=== PATIENT | male | born 1965 | race Caucasian/White ===

== ENCOUNTER 2017-05-08 12:36 | Inpatient (IN) | payer OTHER ==
[~2017-05-08] VITALS: Ht 162.6 cm; Wt 105.7 kg
[~2017-05-08 12:36] MED LIST: ARTIOIN2; ASPI-390 PO; ATOR10TA88 PO; BISO10TA PO; BUSP30TA2 PO; CARB0.5D28; CMD6 PO; DONE23TA PO; EFF75 PO; GLC5 PO; LEVO150T9 PO; LISI-461 PO; LYR50 PO; NMN10 PO; OXCA150T2 PO; OXCA300T PO; OXYC-106 PO; PRLSR20 PO; SITA1TAB21 PO; SITA50TA5 PO; TAMS0.4C38 PO; WARF5TAB90 PO
[2017-05-08] MEDS ORDERED: SODIUM CHLORIDE 0.9% 1000ML 2,000 ML IV ONE (13:00)
[2017-05-08] MEDS: ONDANSETRON INJ 2 MG/ML 2 ML VIAL IV PRN ×3 (13:29→19:57)
[2017-05-08] MEDS: HYDROmorphone INJ 1 MG/ML SYR IV PRN ×3 (13:30→20:00)
[2017-05-08 13:33] LABS: BASO % 0.3 %; BASO ABS # 0.03 K/uL (0-0.2); COMPLETE YES; EOS % 0.6 %; HEMATOCRIT 42.3 % (42-52); IG% 0.3 %; LYMPH % 11.9 %; LYMPH ABS # 1.39 K/uL (1.2-3.4); MEAN CELL VOLUME 84.9 fL (80-100); MEAN CORPUSCULAR HEMOGLOBIN 28.9 pg (25-34); MEAN PLATELET VOLUME 10.5 fL (7.4-10.4); MONO % 6.4 %; NEUT % 80.5 %; PLATELET COUNT 213 K/uL (130-400); RED BLOOD COUNT 4.98 M/uL (4.7-6.1); WHITE BLOOD COUNT 11.68 K/uL (4.8-10.8)
[2017-05-08 13:47] LABS: URINE APPEARANCE TURBID (CLEAR); URINE COLOR DK YELLOW; URINE EPITHELIAL CELL AUTO >30 /lpf (0-5); URINE NITRITE NEG (NEG); URINE SPECIFIC GRAVITY 1.033 (1.000-1.030); UROBILINOGEN NEG (NEG); ZZURINE CULT IF INDIC CATH YES
[2017-05-08 13:50] LABS: BUN/CREATININE RATIO 12.6 (10-20); CALCIUM 9.2 mg/dl (8.5-10.1); CREATININE 1.4 mg/dl (0.60-1.40); POTASSIUM 4.3 mmol/L (3.5-5.1)
[2017-05-08 13:52] LABS: INR 1.7 (0.9-1.1); PARTIAL THROMBOPLASTIN RATIO 1.1; PROTHROMBIN TIME (PATIENT) 18.4 SECONDS (9.0-12.0)
[2017-05-08 13:53] LABS: ALB/GLOB RATIO 1.3 (0.9-2)
[2017-05-08 14:00] LABS: MANUAL MICROSCOPIC REQUIRED? NO; REVIEW REQ? YES; URINE BILIRUBIN NEG (NEG)
[2017-05-08 14:18] LABS: URINE PATH CASTS 0-3 GRANULAR CASTS /lpf (0)
--- NOTE | 2017-05-08 14:43 | DIAGNOSTIC IMAGING REPORT ---
(PANCREAS) ABDOMEN LTD CLINICAL HISTORY: hx of pancreatitis cyst? Mesh in abd pancreatitis TECHNIQUE: Ultrasound COMPARISON STUDY: None FINDINGS: Patient is status post cholecystectomy. Common bile that 5 mm. Liver is uniform throughout. Pancreas is not seen due to overlying bowel content. Right kidney is negative for hydronephrosis. IMPRESSION: 1. Nonvisualization of the pancreas due to overlying bowel content. 2. Otherwise negative study post cholecystectomy The above report was generated using voice recognition software. It may contain grammatical, syntax or spelling errors. Electronically signed by: Evan Sood M.D. 05/08/2017 2:41 PM Dictated Date/Time: 05/08/2017 2:40 PM
[2017-05-08] MEDS ORDERED: GLIP2.5T11 PO (14:57)
[2017-05-08] MEDS ORDERED: VENL150C56 PO (14:57)
[2017-05-08] MEDS ORDERED: ONDA4TAB46 PO (14:57)
[2017-05-08] MEDS ORDERED: BUSP-8 PO (14:57)
[2017-05-08] MEDS ORDERED: BISO5TAB3 PO (14:57)
[2017-05-08] MEDS ORDERED: CMD6 PO (14:57)
[2017-05-08] MEDS ORDERED: DICY10CA12 PO (14:57)
[2017-05-08] MEDS ORDERED: COLE1TAB PO (14:57)
[2017-05-08] MEDS ORDERED: DONE10TA12 PO (14:57)
[2017-05-08] MEDS ORDERED: ATOR-26 PO (14:57)
[2017-05-08] MEDS ORDERED: SODIUM CHLORIDE 0.9% 1000ML 1,000 ML IV SCH (16:00)
[2017-05-08] MEDS ORDERED: GLUCAGON FOR INJ 1 MG VIAL SQ PRN (16:30)
[2017-05-08] MEDS ORDERED: GLUCOSE 40% GEL 15 GM TUBE PO PRN (16:30)
[2017-05-08] MEDS ORDERED: DEXTROSE 50% 50 ML SYR IV PRN (16:30)
[2017-05-08] MEDS ORDERED: LACTATED RINGER'S 1000ML 1,000 ML IV SCH (16:30)
[2017-05-08] MEDS ORDERED: GLUCOSE 10 TABS/TUBE PO PRN (16:30)
[2017-05-08] MEDS ORDERED: CMD5 PO (16:43)
[2017-05-08] MEDS ORDERED: ASPI-390 PO (16:43)
[2017-05-08] MEDS ORDERED: CARB1DRO OPB (16:43)
[2017-05-08] MEDS ORDERED: SITA50TA5 PO (16:43)
[2017-05-08] MEDS ORDERED: WARFARIN SOD 6 MG TAB PO SCH (16:45)
[2017-05-08] MEDS ORDERED: ARTIFICIAL TEARS OP SOLN OPB PRN ×2 (16:45)
[2017-05-08 16:53] VITALS: BP 120/75; PULSE 60; TEMP 36.7; BMI 39.1
[2017-05-08 17:31] VITALS: O2SAT 95
[2017-05-08] MEDS: WARFARIN PO SCH ×2 (17:53)
--- NOTE | 2017-05-08 18:24 | History and Physical ---
History & Physical Date of Service May 08, 2017. History & Physical This is a 52 year old male with a PMH of Atrial fibrillation on Coumadin, sinus node dysfunction s/p pacemaker in situ, severe GERD s/p fundoplication, hernia s /p repair with mesh, uncontrolled DM2, recurrent pancreatitis, HTN, HLD, hypothyroidism - presents with worsening abdominal pain, nausea, diarrhea - was to have an EUS as an outpatient in the next few weeks, but symptoms got bad so he presented to the ER. States he's had pancreatitis recurrently in the past and has been to [facility]; has also followed with GI in [place]. Currently c/o pain. No fevers/chills, no chest pain/shortness of breath. VITALS: Last Vital Signs Documentation Date Time Temp Pulse Resp B/P (MAP) Pulse Ox O2 Delivery O2 Flow Rate FiO2 05/08/17 17:31 95 Room Air 05/08/17 16:53 36.7 60 20 120/75 GEN: mild distress secondary to pain HEENT: NC/AT CVS: +S1, S2, RRR LUNGS: CTA b/l, no wheezing ABD: tender, worse at epigastric region EXT: no edema Recurrent Acute Pancreatitis lipase ~ 1400 will make NPO for now lactated ringers Dilaudid PRN for pain (allergy to morphine) GI consultation for possible EUS? no MRCP due to pacemaker DM2 uncontrolled check Ha1c should be off of Januvia due to pancreatitis issues with this medication if Ha1c > 9% - should be discharged on insulin for now, hold oral agents and start a sliding scale diabetic education consulted A. Fib hold Coumadin for possible EGD in AM currently in NSR HTN hold lisinopril due to low BP b-ida with parameters DVT ppx Coumadin for now FULL CODE
--- NOTE | 2017-05-08 19:05 | EMERGENCY ROOM VISIT NOTE ---
History Report prepared by Kenia: [facility] Under the Supervision of: Dr. Andrade Hernandez M.D. First contact with patient: 12:48 Chief Complaint: ABDOMINAL PAIN Stated Complaint: PANCREATITIS History of Present Illness The patient is a 52 year old male who presents to the Emergency Room with complaints of severe epigastric abdominal pain starting a few days ago. He has worsening pain with deep breathing and dry heaving. He reports nausea, diaphoresis, tingling in bilateral hands, and tingling in lips at the initial onset of his symptoms. He denies hyperventilating, lower extremity swelling, or any other complaints. He started having diarrhea this morning but has a history of IBS. He received Zofran upon arrival to the Emergency Room with some relief. The patient has a history of pancreatitis and reports similar symptoms today. He was diagnosed with pancreatitis on March 20. He had 3 episodes of pancreatitis with his most recent episode and related hospitalization occurring 3 weeks ago. The patient is scheduled to have an endoscopy this month. He also has a history of fundoplication, cholecystectomy, and hernia repair. Source of History: patient Onset: a few days ago Position: abdomen (epigastric) Symptom Intensity: severe Modifying Factors (Worsening): breathing (deep), other (dry heaving) Associated Symptoms: + diaphoresis, + nausea, + diarrhea Review of Systems All systems have been listed, reviewed, and are negative other than those previously mentioned. Please see Additional Medical History Sheet. Past Medical & Surgical Medical Problems: (1) Acute pancreatitis (2) Carpal tunnel syndrome (3) Diabetes (4) Hypertension (5) IBS (irritable bowel syndrome) (6) Migraine (7) Pancreatitis (8) Tarsal tunnel syndrome Surgical Problems: (1) H/O hernia repair (2) History of cholecystectomy (3) History of fundoplication Family History Cancer Diabetes mellitus Gallbladder disease Heart disease Hypertension Kidney disease Kidney stones Lung disease Social History Smoking Status: Never Smoker Marital Status: Occupation Status: employed Current/Historical Medications Scheduled Atorvastatin (Lipitor), 80 MG PO QPM Bisoprolol Fumarate (Zebeta), 20 MG PO DAILY Buspirone Hcl (Buspirone Hcl), 10 MG PO BID Donepezil Hydrochloride (Aricept), 10 MG PO HS Glipizide (Glipizide Er), 2.5 MG PO DAILY Levothyroxine Sodium (Levothyroxine Sodium), 1 TAB PO QAM Lisinopril (Lisinopril), 1 TAB PO DAILY Memantine (Namenda), 10 MG PO BID Oxcarbazepine (Trileptal), 450 MG PO BID Pregabalin (Lyrica), 150 MG PO TID Sitagliptin-Metformin Hcl (Janumet Xr), 1 TAB PO QPM Sitagliptin-Metformin Hcl (Janumet), 1 TAB PO QAM Tamsulosin Hcl (Flomax), 0.4 MG PO DAILY Venlafaxine Hcl (Effexor Extended Rel), 150 MG PO DAILY Warfarin Sod (Coumadin), 7 MG PO UD Warfarin Sod (Coumadin), 10 MG PO UD Scheduled PRN Azjcxih-Quwhqfnlhhvtb-Mfeyynyt (Excedrin Migraine), 2 TABS PO Q6 PRN for Migraine Carboxymethylcellulose Sodium (Eq Restore Tears), 1 DROP OPB QID PRN for dry eyes Ondansetron Hcl (Zofran), 4 MG PO Q8 PRN for Nausea Oxycodone/Acetaminophen 10MG/325MG (Percocet 10MG/325MG), 1 TAB PO Q6 PRN for Pain Allergies Coded Allergies: Atenolol (Unverified Allergy, Unknown, water retention, 05/01/17) Diltiazem (Unverified Allergy, Unknown, migraine, 05/01/17) Indomethacin (Unverified Allergy, Unknown, migraine, 05/01/17) Morphine (Unverified Allergy, Unknown, migraine, 05/01/17) Sulfamethoxazole w/Trimethoprim (Unverified Allergy, Unknown, hives, cramping, 05/01/17) Physical Exam Vital Signs Date Time Temp Pulse Resp B/P (MAP) Pulse Ox O2 Delivery O2 Flow Rate FiO2 05/08/17 15:24 112/58 05/08/17 14:06 60 11 05/08/17 13:53 63 05/08/17 13:22 97 Room Air 05/08/17 12:42 36.7 64 18 94/67 96 Room Air Physical Exam GENERAL: Patient awake, alert, oriented x 3. Patient follows commands. Patient does not appear toxic. Patient is adequately hydrated and well- nourished. SKIN: No erythema, pallor, cyanosis or rash. Multiple tattoos. HEENT: Normal head, pupils equal, reactive to light and accommodation. Oral cavity and posterior pharynx appear normal. Mucous membranes are dry. Neck: Without adenopathy, no neck vein distention. CHEST: Pacemaker left upper chest. LUNGS: Clear to auscultation. No wheezes, no rales, no rhonchi. HEART: No murmurs. No gallops. No rubs ABDOMEN: Epigastric tenderness. No masses palpated. Patient has some guarding but no rigidity. EXTREMITIES: No signs of trauma. No pedal or pretibial edema. No calf or thigh tenderness. NEUROLOGIC: Cranial nerves II-XII within normal limits. No gross motor sensory function deficits. Medical Decision & Procedures ER Provider Diagnostic Interpretation: US results as stated below per my review and radiologist interpretation: (PANCREAS) ABDOMEN LTD CLINICAL HISTORY: hx of pancreatitis cyst? Mesh in abd pancreatitis TECHNIQUE: Ultrasound COMPARISON STUDY: None FINDINGS: Patient is status post cholecystectomy. Common bile that 5 mm. Liver is uniform throughout. Pancreas is not seen due to overlying bowel content. Right kidney is negative for hydronephrosis. IMPRESSION: 1. Nonvisualization of the pancreas due to overlying bowel content. 2. Otherwise negative study post cholecystectomy The above report was generated using voice recognition software. It may contain grammatical, syntax or spelling errors. Electronically signed by: Evan Sood M.D. 05/08/2017 2:41 PM Dictated Date/Time: 05/08/2017 2:40 PM Laboratory Results 05/08/17 13:10 Red Blood Count 4.98, Mean Corpuscular Volume 84.9, Mean Corpuscular Hemoglobin 28.9, Mean Corpuscular Hemoglobin Concent 34.0, Mean Platelet Volume 10.5, Neutrophils (%) (Auto) 80.5, Lymphocytes (%) (Auto) 11.9, Monocytes (%) (Auto) 6.4, Eosinophils (%) (Auto) 0.6, Basophils (%) (Auto) 0.3, Neutrophils # (Auto) 9.41, Lymphocytes # (Auto) 1.39, Monocytes # (Auto) 0.75, Eosinophils # (Auto) 0.07, Basophils # (Auto) 0.03 05/08/17 13:10 Test 05/08/17 13:10 White Blood Count 11.68 K/uL (4.8-10.8) Red Blood Count 4.98 M/uL (4.7-6.1) Hemoglobin 14.4 g/dL (14.0-18.0) Hematocrit 42.3 % (42-52) Mean Corpuscular Volume 84.9 fL (80-100) Mean Corpuscular Hemoglobin 28.9 pg (25-34) Mean Corpuscular Hemoglobin Concent 34.0 g/dl (32-36) Platelet Count 213 K/uL (130-400) Mean Platelet Volume 10.5 fL (7.4-10.4) Neutrophils (%) (Auto) 80.5 % Lymphocytes (%) (Auto) 11.9 % Monocytes (%) (Auto) 6.4 % Eosinophils (%) (Auto) 0.6 % Basophils (%) (Auto) 0.3 % Neutrophils # (Auto) 9.41 K/uL (1.4-6.5) Lymphocytes # (Auto) 1.39 K/uL (1.2-3.4) Monocytes # (Auto) 0.75 K/uL (0.11-0.59) Eosinophils # (Auto) 0.07 K/uL (0-0.5) Basophils # (Auto) 0.03 K/uL (0-0.2) RDW Standard Deviation 40.5 fL (36.4-46.3) RDW Coefficient of Variation 13.2 % (11.5-14.5) Immature Granulocyte % (Auto) 0.3 % Immature Granulocyte # (Auto) 0.03 K/uL (0.00-0.02) Prothrombin Time 18.4 SECONDS (9.0-12.0) Prothromb Time International Ratio 1.7 (0.9-1.1) Activated Partial Thromboplast Time 29.2 SECONDS (21.0-31.0) Partial Thromboplastin Ratio 1.1 Urine Color DK YELLOW Urine Appearance TURBID (CLEAR) Urine pH 5.0 (4.5-7.5) Urine Specific [place] 1.033 (1.000-1.030) Urine Protein 3+ (NEG) Urine Glucose (UA) TRACE (NEG) Urine Ketones TRACE (NEG) Urine Occult Blood NEG (NEG) Urine Nitrite NEG (NEG) Urine Bilirubin NEG (NEG) Urine Urobilinogen NEG (NEG) Urine Leukocyte Esterase NEG (NEG) Urine WBC (Auto) 1-5 /hpf (0-5) Urine RBC (Auto) 0-4 /hpf (0-4) Urine Hyaline Casts (Auto) 10-30 /lpf (0-5) Urine Epithelial Cells (Auto) >30 /lpf (0-5) Urine Bacteria (Auto) NEG (NEG) Urine Renal Epithelial Cells /lpf (0-5) Urine Crystals AMORPHOUS SEDIMENT (NONE Urine Pathogenic Casts 0-3 GRANULAR CASTS /lpf (0) Anion Gap 8.0 mmol/L (3-11) Est Creatinine Clear Calc Drug Dose 65.1 ml/min Estimated GFR () 65.6 Estimated GFR (Non- 56.6 BUN/Creatinine Ratio 12.6 (10-20) Calcium Level 9.2 mg/dl (8.5-10.1) Total Bilirubin 0.3 mg/dl (0.2-1) Aspartate Amino Transf (AST/SGOT) 24 U/L (15-37) Alanine Aminotransferase (ALT/SGPT) 51 U/L (12-78) Alkaline Phosphatase 116 U/L (45-117) Total Protein 6.9 gm/dl (6.4-8.2) Albumin 3.9 gm/dl (3.4-5.0) Globulin 3.0 gm/dl (2.5-4.0) Albumin/Globulin Ratio 1.3 (0.9-2) Lipase 1657 U/L (73-393) Laboratory results as stated above per my review. Medications Administered Medications (Trade) Dose Ordered Sig/Stephanie Route Start Time Stop Time Status Last Admin Dose Admin Sodium Chloride 2,000 ml @ 1,000 mls/hr Q2H ONCE IV 05/08/17 13:00 05/08/17 14:59 DC 05/08/17 13:27 1,000 MLS/HR Ondansetron HCl (Zofran Inj) 4 mg Q1HWA PRN IV 05/08/17 13:00 05/08/17 16:56 DC 05/08/17 15:30 4 MG Hydromorphone HCl (Dilaudid Inj) 1 mg Q1HWA PRN IV 05/08/17 13:00 05/08/17 16:56 DC 05/08/17 15:31 1 MG ED Course 1248: Past medical records reviewed. The patient was evaluated in room B08. A complete history and physical examination was performed. 1300: Dilaudid Inj 1 mg IV, Zofran Inj 4 mg IV, Sodium Chloride 2000 ml @ 1000 mls/hr IV 1418: Upon reevaluation, the patient is resting comfortably.I discussed today's findings with him. He verbalized agreement of the treatment plan. The patient will be evaluated for further management and care. 1441: I discussed the patient's case with [facility] Medical Decision Medication Reconciliation: I attest that I have personally reviewed the patient' s current medication list. Blood pressure Screening: Patient was found to have low blood pressure on screening and does not require follow up. Differential diagnosis includes but is not limited to pancreatitis, peptic/ gastric ulcer disease, gastritis, gastroenteritis, dehydration. Multiple labs and imaging studies were performed. Please see above. The patient has significant elevation of his lipase consistent with his clinical findings and pancreatitis. Ultrasound does not reveal a pseudocyst. The patient was given IV fluids and pain medication. I discussed care with the hospitalist. Consults Time Called: 1418 Consulting Physician: Maria Del Rosario Garcia PA-C with [facility] Service Returned Call: 1441 I discussed the patient's case with Maria Del Rosario Garcia PA-C with [facility] Service. Impression Primary Impression: Pancreatitis Scribe Attestation The scribe's documentation has been prepared under my direction and personally reviewed by me in its entirety. I confirm that the note above accurately reflects all work, treatment, procedures, and medical decision making performed by me. Departure Information Dispostion Being Evaluated By Hospitalist Referrals Alejandro Becerra D.O. (PCP) Patient Instructions My [facility]
[2017-05-08 19:08] VITALS: BP 117/72; PULSE 61; TEMP 36.5; O2SAT 94
[2017-05-08] MEDS: OXCARBAZEPINE 150 MG TAB PO SCH (20:00)
[2017-05-08] MEDS: ATORVASTATIN 40 MG TAB PO SCH (20:01)
[2017-05-08] MEDS: MEMANTINE 10 MG TAB PO SCH (20:01)
[2017-05-08] MEDS: DONEPEZIL HCL 10 MG TAB PO SCH (20:02)
[2017-05-08] MEDS: PREGABALIN 150 MG CAP PO SCH (20:10)
[2017-05-08] MEDS: INSULIN ASPART 100 UNITS/ML 3 ML PEN SC SCH (20:10)
[2017-05-08] MEDS: D5W AND NSS 1,000 ML IV SCH (20:28)
[2017-05-08] MEDS: ACETAMINOPHEN 325 MG TAB PO PRN (21:23)
--- NOTE | 2017-05-08 22:15 | History and Physical ---
History & Physical Date & Time of Service: May 08, 2017 at 17:54 Chief Complaint: Acute Pancreatitis Primary Care Physician: Alejandro Becerra D.O. History of Present Illness Source: patient, clinic records This is a 52 y/o male with PMH of GERD s/p fundoplication, history of pancreatitis, hx cholecystectomy, hx hernia repair, DM type 2, AF on Coumadin, sinus node dysfunction s/p pacemaker, hypertension, dyslipidemia, and other problems listed below who presents to the ED with epigastric abdominal pain. Patient is followed by [facility] Trevino. Patient reports onset of abdominal pain around 9:30 this morning described as stabbing and pressure which states felt similar to prior pancreatitis. Pain is located in epigastrium with radiation to his back. The pain waxes and wanes in severity and worsens with deep inspiration and dry heaving. He notes improvement with IV Dilaudid given in ER. He notes he was unable to eat today and was nauseous with dry heaving, however states he is unable to vomit due to hx of fundoplication. Had episode of liquid stool this morning. Pt denies fever, chills, chest pain, SOB, hematochezia, melena, urinary change.Patient denies any recent alcohol intake or unusual food intake. Patient was recently hospitalized at [facility] in 02/2017, seen at [facility] ER 03/24, and admitted 03/2017 for pancreatitis. Per [facility] note, CT scans at [facility] were unremarkable with normal pancreas and no signs of biliary ductal dilatation. He was noted to have elevated lipase >1500 and mild LFT elevations. Triglycerides were noted to be 198. MRCP could not be done due to pacemaker. Per GI note had A1c of 10 on [facility] admission. Patient is scheduled for EUS later this month. Past Medical/Surgical History Medical Problems: (1) Atrial fibrillation Status: Chronic (2) BPH (benign prostatic hyperplasia) Status: Chronic (3) Carpal tunnel syndrome Status: Chronic (4) Chronic anticoagulation Status: Chronic (5) Depression Status: Chronic (6) Diabetes Status: Chronic (7) DM type 2 (diabetes mellitus, type 2) Status: Chronic (8) Dyslipidemia Status: Chronic (9) GERD (gastroesophageal reflux disease) Status: Chronic (10) HTN (hypertension) Status: Chronic (11) Hypertension Status: Chronic (12) IBS (irritable bowel syndrome) Status: Chronic (13) Kidney stone Status: Chronic (14) Migraine Status: Resolved (15) Migraines Status: Chronic (16) Neuropathy in diabetes Status: Chronic (17) Pacemaker Status: Chronic (18) Pancreatitis Status: Resolved (19) Tarsal tunnel syndrome Status: Chronic Surgical Problems: (1) H/O hernia repair Status: Resolved (2) H/O hernia repair Status: Chronic (3) History of cholecystectomy Status: Resolved (4) History of fundoplication Status: Resolved (5) S/p kidney stone removal Status: Chronic (6) S/P laparoscopic cholecystectomy Status: Chronic (7) S/P rotator cuff repair Status: Chronic (8) S/p tumor removal right breast Status: Chronic (9) 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 Status: Chronic Family History Cancer Diabetes mellitus Gallbladder disease Heart disease Hypertension Kidney disease Kidney stones Lung disease Social History Smoking Status: Former Smoker Alcohol Use: none Marital Status: Housing status: lives with significant other Allergies Coded Allergies: Atenolol (Unverified Allergy, Unknown, water retention, 05/01/17) Diltiazem (Unverified Allergy, Unknown, migraine, 05/01/17) Indomethacin (Unverified Allergy, Unknown, migraine, 05/01/17) Morphine (Unverified Allergy, Unknown, migraine, 05/01/17) Sulfamethoxazole w/Trimethoprim (Unverified Allergy, Unknown, hives, cramping, 05/01/17) Home Medications Scheduled Atorvastatin (Lipitor), 80 MG PO QPM Bisoprolol Fumarate (Zebeta), 20 MG PO DAILY Buspirone Hcl (Buspirone Hcl), 10 MG PO BID Donepezil Hydrochloride (Aricept), 10 MG PO HS Glipizide (Glipizide Er), 2.5 MG PO DAILY Levothyroxine Sodium (Levothyroxine Sodium), 1 TAB PO QAM Lisinopril (Lisinopril), 1 TAB PO DAILY Memantine (Namenda), 10 MG PO BID Oxcarbazepine (Trileptal), 450 MG PO BID Pregabalin (Lyrica), 150 MG PO TID Sitagliptin-Metformin Hcl (Janumet Xr), 1 TAB PO QPM Sitagliptin-Metformin Hcl (Janumet), 1 TAB PO QAM Tamsulosin Hcl (Flomax), 0.4 MG PO DAILY Venlafaxine Hcl (Effexor Extended Rel), 150 MG PO DAILY Warfarin Sod (Coumadin), 7 MG PO UD Warfarin Sod (Coumadin), 10 MG PO UD Scheduled PRN Tkylmse-Aykpymbfwpowy-Bwbcenks (Excedrin Migraine), 2 TABS PO Q6 PRN for Migraine Carboxymethylcellulose Sodium (Eq Restore Tears), 1 DROP OPB QID PRN for dry eyes Ondansetron Hcl (Zofran), 4 MG PO Q8 PRN for Nausea Oxycodone/Acetaminophen 10MG/325MG (Percocet 10MG/325MG), 1 TAB PO Q6 PRN for Pain Review of Systems Ten systems reviewed and negative except as noted in HPI. Physical Exam Vital Signs Date Time Temp Pulse Resp B/P (MAP) Pulse Ox O2 Delivery O2 Flow Rate FiO2 05/08/17 17:31 95 Room Air 05/08/17 16:53 36.7 60 20 120/75 05/08/17 16:31 36.7 60 20 105/64 94 05/08/17 16:01 105/64 05/08/17 15:36 60 20 05/08/17 15:31 60 12 97/59 94 Room Air 05/08/17 15:24 112/58 05/08/17 14:06 60 11 05/08/17 13:53 63 05/08/17 13:22 97 Room Air 05/08/17 12:42 36.7 64 18 94/67 96 Room Air General Appearance: WD/WN, no apparent distress, + pertinent finding ( at bedside) Head: normocephalic, atraumatic Eyes: normal inspection ENT: hearing grossly normal, TMs normal, pharynx normal Neck: supple, trachea midline Respiratory/Chest: lungs clear, normal breath sounds, no respiratory distress, no accessory muscle use Cardiovascular: regular rate, rhythm, no murmur Abdomen/GI: normal bowel sounds, soft, + pertinent finding (tender in epigastrium and RUQ) Back: no CVA tenderness Extremities/Musculoskelatal: no calf tenderness, no pedal edema Neurologic/Psych: alert, normal mood/affect, oriented x 3 Skin: normal color, warm/dry Diagnostics Laboratory Results Results Past 24 Hours Test 05/08/17 13:10 05/08/17 16:58 Range/Units White Blood Count 11.68 4.8-10.8 K/uL Red Blood Count 4.98 4.7-6.1 M/uL Hemoglobin 14.4 14.0-18.0 g/dL Hematocrit 42.3 42-52 % Mean Corpuscular Volume 84.9 80-100 fL Mean Corpuscular Hemoglobin 28.9 25-34 pg Mean Corpuscular Hemoglobin Concent 34.0 32-36 g/dl Platelet Count 213 130-400 K/uL Mean Platelet Volume 10.5 7.4-10.4 fL Neutrophils (%) (Auto) 80.5 % Lymphocytes (%) (Auto) 11.9 % Monocytes (%) (Auto) 6.4 % Eosinophils (%) (Auto) 0.6 % Basophils (%) (Auto) 0.3 % Neutrophils # (Auto) 9.41 1.4-6.5 K/uL Lymphocytes # (Auto) 1.39 1.2-3.4 K/uL Monocytes # (Auto) 0.75 0.11-0.59 K/uL Eosinophils # (Auto) 0.07 0-0.5 K/uL Basophils # (Auto) 0.03 0-0.2 K/uL RDW Standard Deviation 40.5 36.4-46.3 fL RDW Coefficient of Variation 13.2 11.5-14.5 % Immature Granulocyte % (Auto) 0.3 % Immature Granulocyte # (Auto) 0.03 0.00-0.02 K/uL Prothrombin Time 18.4 9.0-12.0 SECONDS Prothromb Time International Ratio 1.7 0.9-1.1 Activated Partial Thromboplast Time 29.2 21.0-31.0 SECONDS Partial Thromboplastin Ratio 1.1 Urine Color DK YELLOW Urine Appearance TURBID CLEAR Urine pH 5.0 4.5-7.5 Urine Specific [place] 1.033 1.000-1.030 Urine Protein 3+ NEG Urine Glucose (UA) TRACE NEG Urine Ketones TRACE NEG Urine Occult Blood NEG NEG Urine Nitrite NEG NEG Urine Bilirubin NEG NEG Urine Urobilinogen NEG NEG Urine Leukocyte Esterase NEG NEG Urine WBC (Auto) 1-5 0-5 /hpf Urine RBC (Auto) 0-4 0-4 /hpf Urine Hyaline Casts (Auto) 10-30 0-5 /lpf Urine Epithelial Cells (Auto) >30 0-5 /lpf Urine Bacteria (Auto) NEG NEG Urine Renal Epithelial Cells 0-5 /lpf Urine Crystals AMORPHOUS SEDIMENT NONE PRSENT Urine Pathogenic Casts 0-3 GRANULAR CASTS 0 /lpf Sodium Level 141 136-145 mmol/L Potassium Level 4.3 3.5-5.1 mmol/L Chloride Level 106 98-107 mmol/L Carbon Dioxide Level 27 21-32 mmol/L Anion Gap 8.0 3-11 mmol/L Blood Urea Nitrogen 18 7-18 mg/dl Creatinine 1.40 0.60-1.40 mg/dl Est Creatinine Clear Calc Drug Dose 65.1 ml/min Estimated GFR () 65.6 Estimated GFR (Non- 56.6 BUN/Creatinine Ratio 12.6 10-20 Random Glucose 234 70-99 mg/dl Calcium Level 9.2 8.5-10.1 mg/dl Total Bilirubin 0.3 0.2-1 mg/dl Aspartate Amino Transf (AST/SGOT) 24 15-37 U/L Alanine Aminotransferase (ALT/SGPT) 51 12-78 U/L Alkaline Phosphatase 116 45-117 U/L Total Protein 6.9 6.4-8.2 gm/dl Albumin 3.9 3.4-5.0 gm/dl Globulin 3.0 2.5-4.0 gm/dl Albumin/Globulin Ratio 1.3 0.9-2 Lipase 1657 73-393 U/L Bedside Glucose 120 70-99 mg/dl Diagnostic Radiology (PANCREAS) ABDOMEN LTD- per radiology IMPRESSION: 1. Nonvisualization of the pancreas due to overlying bowel content. 2. Otherwise negative study post cholecystectomy Impression Assessment and Plan Patient seen in collaboration with Dr. Linton. Please see his addendum for assessment and plan. Advanced Directives Existing Living Will: No Existing Power of Gas Line Servicer: No VTE Prophylaxis VTE Risk Assessment Done? Y/N: Yes Risk Level: Moderate Given or contraindicated: Warfarin (Coumadin)
[2017-05-09] VITALS (9 sets, daily range): BP systolic 109–150; BP diastolic 59–91; PULSE 59–63; TEMP 36.6–37.1; O2SAT 94–97; BMI 39.2
[2017-05-09] MEDS ORDERED: ZOLPIDEM TARTRATE 5 MG TAB ONE (00:28)
[2017-05-09] MEDS: D5W AND NSS 1,000 ML IV SCH ×4 (01:55→20:31)
[2017-05-09] MEDS: ONDANSETRON INJ 2 MG/ML 2 ML VIAL IV PRN ×3 (02:50→15:29)
[2017-05-09] MEDS: HYDROmorphone INJ 1 MG/ML SYR IV PRN ×4 (02:52→20:31)
[2017-05-09] MEDS: LEVOTHYROXINE 150 MCG TAB PO SCH (05:45)
[2017-05-09 06:45] LABS: HEMATOCRIT 37.9 % (42-52); MEAN CELL VOLUME 86.7 fL (80-100); MEAN CORPUSCULAR HEMOGLOBIN 28.1 pg (25-34); MEAN CORPUSCULAR HGB CONC 32.5 g/dl (32-36); PLATELET COUNT 141 K/uL (130-400); RED BLOOD COUNT 4.37 M/uL (4.7-6.1); WHITE BLOOD COUNT 5.28 K/uL (4.8-10.8)
[2017-05-09 06:55] LABS: PROTHROMBIN TIME (PATIENT) 22.6 SECONDS (9.0-12.0)
[2017-05-09] MEDS: INSULIN ASPART 100 UNITS/ML 3 ML PEN SC SCH ×4 (07:00→20:33)
[2017-05-09 07:04] LABS: ESTIMATED AVERAGE GLUCOSE 217 mg/dl; HA1C FLAG Normal (Normal)
[2017-05-09 07:16] LABS: ALT/SGPT 41 U/L (12-78); BLOOD UREA NITROGEN 16 mg/dl (7-18); BUN/CREATININE RATIO 13.6 (10-20); CALCIUM 7.9 mg/dl (8.5-10.1); CARBON DIOXIDE 27 mmol/L (21-32); CHLORIDE 113 mmol/L (98-107); GLUCOSE 161 mg/dl (70-99); MAGNESIUM 1.4 mg/dl (1.8-2.4); POTASSIUM 4.1 mmol/L (3.5-5.1); SODIUM 145 mmol/L (136-145)
[2017-05-09 07:20] LABS: ALKALINE PHOSPHATASE 85 U/L (45-117); AST/SGOT 18 U/L (15-37)
[2017-05-09] MEDS: BISOPROLOL FUMARATE 10 MG TAB PO SCH (09:00)
[2017-05-09] MEDS: MAGNESIUM SULFATE 1GM / D5W 1 GM in PREMIXED IN D5W 100 ML IV SCH ×3 (09:04→11:36)
[2017-05-09] MEDS: TAMSULOSIN HCL 0.4 MG CAP PO SCH (09:06)
[2017-05-09] MEDS: OXCARBAZEPINE 150 MG TAB PO SCH ×2 (09:06→20:56)
[2017-05-09] MEDS: VENLAFAXINE HCL XR 150 MG CAPXR PO SCH (09:06)
--- NOTE | 2017-05-09 09:06 | Gastrointestinal Consultation ---
Gastrointestinal Consultation Date of Consultation: May 09, 2017 Attending Physician: Attending is Dr. Her; Consult from Brianne Garcia PA-C /Dr. Kwong Consulting Physician: Dr. Irvin Reason for Consultation: Pancreatitis History of Present Illness Patient is a 52 year old male pt of Dr. Becerra with a hx of DM, S/P distant cholecystectomy, SA node dysfunction with pacemaker on Coumadin for A-fib, also with HTN, hyperlipidemia and S/P fundoplication is here for his 4th admission ( though others were at [facility]) for pancreatitis in the past 3 months. His pain began yesterday morning, awakening him around 9:30AM, and was accompanied by diarrhea, nausea and dry heaves. Pain was diffuse but worse in the epigastric area. He presented to the ED where lipase was 1657 and LFTs were normal. US was w/o visualization of the pancreas. The most recent CT of the pancreas was about 3 weeks ago at [facility]. He was seen in OP GI clinic by Saravanan Anderson and set up for EUS which is scheduled for May 19, 2017 here at [facility]. He is awake, alert, oriented, able to ambulate some in the room and tells me that his pain is about a 5 this morning, improved from the level 9 of 10 on arrival. His lipase is improved at 346 and his LFTs remain normal. WBC was slightly elevated on arrival and is now normal. Hb on arrival was 14 and today is 12 He is receiving LR at 200/hr. Regarding the cause of the pancreatitis, he is status post distant cholecystectomy but tells me that he did not have pancreatitis then. His initial episode of pancreatitis was in February 2017. He denies any hx of heavy drinking and stopped drinking any alcohol at age 20 because he thought it was causing kidney stones. He does not have a family hx of pancreatitis or pancreas cancer. Past Medical/Surgical History Medical Problems: (1) Pancreatitis Status: Acute Past Medical History: 1. A-fib 2. Sinus node dysfunction 3. BPH 4. Depression 5. DM-2, neuropathy 6. Hyperlipidemia 7. IBS 8. Migraines 9. Recurrent kidney stones 10. Pancreatitis Past Surgical History: 1. B Radial nerve release 2. B Carpal Tunnel releast 3. B Tarsal tunnel release 4. Rt Kaur's neuroma 5. Excision of benign right lung tumor 6. Rt Rotator Cuff repair 7. Kidney stone excision, multiple lithotripsies 8. Heart Cath x 4 9. Cholecystectomy 10. Excision of benign right breast tumor 11. Multiple abdominal hernia surgeries with mesh Family History Cancer Diabetes mellitus Gallbladder disease Heart disease Hypertension Kidney disease Kidney stones Lung disease Social History Smoking Status: Former Smoker Marital Status: Occupation Status: employed Allergies Coded Allergies: Atenolol (Unverified Allergy, Unknown, water retention, 05/01/17) Diltiazem (Unverified Allergy, Unknown, migraine, 05/01/17) Indomethacin (Unverified Allergy, Unknown, migraine, 05/01/17) Morphine (Unverified Allergy, Unknown, migraine, 05/01/17) Sulfamethoxazole w/Trimethoprim (Unverified Allergy, Unknown, hives, cramping, 05/01/17) Current Medications Home Meds and Scripts Medications Dose Route/Sig Max Daily Dose Days Date Category Dose Instructions Eq Restore Tears (Carboxymethylcellulose Sodium) 0.5 % Benigno 1 Drop OPB QID PRN 05/08/17 Reported Excedrin Migraine (Ywxgshy-Spralcikzcuss-Umimizlq) 1 Tab Tab 2 Tabs PO Q6 PRN 05/08/17 Reported Not to exceed 3 grams/ 24 hours of all acetaminophen products combined. Janumet (Sitagliptin-Metformin Hcl) 1 Tab Tab 1 Tab PO QAM 30 05/08/17 Reported Janumet 50-1000 mg. Take 1 tablet by mouth daily in the morning. Coumadin (Warfarin Sod) 5 Mg Tab 10 Mg PO UD 05/08/17 Reported Take 10 mg PO on Monday, Monday, , Monday Aricept (Donepezil Hydrochloride) 10 Mg Tab 10 Mg PO HS 05/08/17 Reported Effexor Extended Rel (Venlafaxine Hcl) 150 Mg Cap 150 Mg PO DAILY 05/08/17 Reported Buspirone Hcl 10 Mg Tab 10 Mg PO BID 05/08/17 Reported Lipitor (Atorvastatin Calcium) 80 Mg Tab 80 Mg PO QPM 05/08/17 Reported Glipizide Er (Glipizide) 2.5 Mg Tab 2.5 Mg PO DAILY 05/08/17 Reported Zebeta (Bisoprolol Fumarate) 5 Mg Tab 20 Mg PO DAILY 05/08/17 Reported 10MG TABLETS. TAKE 2 TABLETS ONCE DAILY Coumadin (Warfarin Sod) 6 Mg Tab 7 Mg PO UD 05/08/17 Reported Take 7 mg by mouth on Monday, Monday, Monday Zofran (Ondansetron HCl) 4 Mg Tab 4 Mg PO Q8 PRN 05/08/17 Reported Trileptal (Oxcarbazepine) 300 Mg Tab 450 Mg PO BID 05/01/17 Reported Namenda (Memantine) 10 Mg Tab 10 Mg PO BID 05/01/17 Reported Flomax (Tamsulosin Hcl) 0.4 Mg Cap 0.4 Mg PO DAILY 02/09/15 Reported Lyrica (Pregabalin) 50 Mg Cap 150 Mg PO TID 06/26/14 Reported Lisinopril 10 Mg Tab 1 Tab PO DAILY 12/06/13 Reported Levothyroxine Sodium 150 Mcg Tab 1 Tab PO QAM 12/06/13 Reported Janumet Xr (Sitagliptin-Metformin Hcl) 1 Tab Tab 1 Tab PO QPM 12/06/13 Reported Janumet 50-500. Take 1 tablet by mouth once daily at supper. Percocet 10MG/325MG (Oxycodone/Acetaminophen) Tab 1 Tab PO Q6 PRN 12/06/13 Reported Review of Systems Constitutional: No fever, No chills, No sweats, No weight loss, No weakness Eyes: No eye pain, No redness ENT: No sore throat, No trouble swallowing, No pain on swallowing Respiratory: No cough, No wheezing, No shortness of breath, No dyspnea on exertion Cardiac: No chest pain, No edema, No palpitations Abdomen: + see HPI, + pain, + nausea, + diarrhea, + problem reported (dry heaves) Neuro: No memory loss, No weakness, No numbness/tingling, No vertigo, No balance problems Psych: No depression symptoms, No anxiety, No insomnia Heme: No abnormal bleeding/bruising, No night sweats Endo: No excessive thirst, No excessive urination Skin: No rash, No itch, No new/changing skin lesions, No jaundice Physical Exam Date Time Temp Pulse Resp B/P (MAP) Pulse Ox O2 Delivery O2 Flow Rate FiO2 05/09/17 08:09 Room Air 05/09/17 07:40 36.6 59 18 129/76 (93) 97 Room Air 05/09/17 04:45 36.7 60 16 109/59 (76) 95 Room Air 05/09/17 04:00 Room Air 05/09/17 00:03 37.1 63 18 121/84 (96) 96 Room Air 05/08/17 23:59 Room Air 05/08/17 20:00 Room Air 05/08/17 19:08 36.5 61 20 117/72 (87) 94 Room Air 05/08/17 17:31 95 Room Air 05/08/17 16:53 36.7 60 20 120/75 05/08/17 16:31 36.7 60 20 105/64 94 05/08/17 16:01 105/64 05/08/17 15:36 60 20 05/08/17 15:31 60 12 97/59 94 Room Air 05/08/17 15:24 112/58 05/08/17 14:06 60 11 05/08/17 13:53 63 05/08/17 13:22 97 Room Air 05/08/17 12:42 36.7 64 18 94/67 96 Room Air General Appearance: + mild distress Eyes: normal inspection, EOMI ENT: pharynx normal Neck: supple, no adenopathy, thyroid normal, no JVD Respiratory/Chest: chest non-tender, lungs clear, normal breath sounds, no accessory muscle use Cardiovascular: regular rate, rhythm, no JVD, no murmur Abdomen: normal bowel sounds, soft, no organomegaly, + distended (mild), + tenderness (very tender over the entire upper abdomen and mildly tender over the entire lower abdomen) Extremities: normal inspection, no pedal edema, normal capillary refill Neurologic/Psych: alert, normal mood/affect, oriented x 3 Skin: normal color, no jaundice, warm/dry, no rash Laboratory Results Last 24 Hours Test 05/08/17 13:10 05/08/17 16:58 05/08/17 20:05 05/08/17 21:18 White Blood Count 11.68 K/uL Red Blood Count 4.98 M/uL Hemoglobin 14.4 g/dL Hematocrit 42.3 % Mean Corpuscular Volume 84.9 fL Mean Corpuscular Hemoglobin 28.9 pg Mean Corpuscular Hemoglobin Concent 34.0 g/dl Platelet Count 213 K/uL Mean Platelet Volume 10.5 fL Neutrophils (%) (Auto) 80.5 % Lymphocytes (%) (Auto) 11.9 % Monocytes (%) (Auto) 6.4 % Eosinophils (%) (Auto) 0.6 % Basophils (%) (Auto) 0.3 % Neutrophils # (Auto) 9.41 K/uL Lymphocytes # (Auto) 1.39 K/uL Monocytes # (Auto) 0.75 K/uL Eosinophils # (Auto) 0.07 K/uL Basophils # (Auto) 0.03 K/uL RDW Standard Deviation 40.5 fL RDW Coefficient of Variation 13.2 % Immature Granulocyte % (Auto) 0.3 % Immature Granulocyte # (Auto) 0.03 K/uL Prothrombin Time 18.4 SECONDS Prothromb Time International Ratio 1.7 Activated Partial Thromboplast Time 29.2 SECONDS Partial Thromboplastin Ratio 1.1 Urine Color DK YELLOW Urine Appearance TURBID Urine pH 5.0 Urine Specific [place] 1.033 Urine Protein 3+ Urine Glucose (UA) TRACE Urine Ketones TRACE Urine Occult Blood NEG Urine Nitrite NEG Urine Bilirubin NEG Urine Urobilinogen NEG Urine Leukocyte Esterase NEG Urine WBC (Auto) 1-5 /hpf Urine RBC (Auto) 0-4 /hpf Urine Hyaline Casts (Auto) 10-30 /lpf Urine Epithelial Cells (Auto) >30 /lpf Urine Bacteria (Auto) NEG Urine Renal Epithelial Cells /lpf Urine Crystals AMORPHOUS SEDIMENT Urine Pathogenic Casts 0-3 GRANULAR CASTS /lpf Sodium Level 141 mmol/L Potassium Level 4.3 mmol/L Chloride Level 106 mmol/L Carbon Dioxide Level 27 mmol/L Anion Gap 8.0 mmol/L Blood Urea Nitrogen 18 mg/dl Creatinine 1.40 mg/dl Est Creatinine Clear Calc Drug Dose 65.1 ml/min Estimated GFR () 65.6 Estimated GFR (Non- 56.6 BUN/Creatinine Ratio 12.6 Random Glucose 234 mg/dl Calcium Level 9.2 mg/dl Total Bilirubin 0.3 mg/dl Aspartate Amino Transf (AST/SGOT) 24 U/L Alanine Aminotransferase (ALT/SGPT) 51 U/L Alkaline Phosphatase 116 U/L Total Protein 6.9 gm/dl Albumin 3.9 gm/dl Globulin 3.0 gm/dl Albumin/Globulin Ratio 1.3 Lipase 1657 U/L Bedside Glucose 120 mg/dl 74 mg/dl 107 mg/dl Test 05/09/17 02:31 05/09/17 06:31 05/09/17 06:50 Bedside Glucose 145 mg/dl 161 mg/dl White Blood Count 5.28 K/uL Red Blood Count 4.37 M/uL Hemoglobin 12.3 g/dL Hematocrit 37.9 % Mean Corpuscular Volume 86.7 fL Mean Corpuscular Hemoglobin 28.1 pg Mean Corpuscular Hemoglobin Concent 32.5 g/dl RDW Standard Deviation 43.3 fL RDW Coefficient of Variation 13.6 % Platelet Count 141 K/uL Mean Platelet Volume 10.0 fL Prothrombin Time 22.6 SECONDS Prothromb Time International Ratio 2.0 Sodium Level 145 mmol/L Potassium Level 4.1 mmol/L Chloride Level 113 mmol/L Carbon Dioxide Level 27 mmol/L Anion Gap 5.0 mmol/L Blood Urea Nitrogen 16 mg/dl Creatinine 1.20 mg/dl Est Creatinine Clear Calc Drug Dose 76.6 ml/min Estimated GFR () 79.0 Estimated GFR (Non- 68.1 BUN/Creatinine Ratio 13.6 Random Glucose 161 mg/dl Estimated Average Glucose 217 mg/dl Hemoglobin A1c 9.2 % Calcium Level 7.9 mg/dl Magnesium Level 1.4 mg/dl Total Bilirubin 0.3 mg/dl Direct Bilirubin < 0.1 mg/dl Aspartate Amino Transf (AST/SGOT) 18 U/L Alanine Aminotransferase (ALT/SGPT) 41 U/L Alkaline Phosphatase 85 U/L Total Protein 5.6 gm/dl Albumin 3.1 gm/dl Lipase 346 U/L Impression Patient is a 52 year old male with pancreatitis, (lipase >1000), clinically improving. There is no evidence of biliary obstruction with normal CBD on US and normal LFTs. No hx of increased alcohol intake. Plan 1. Will check triglyceride level and will check IGG 4 for autoimmune pancreatitis. 2. Will request CT results from [place] and will consider repeat CT of the pancreas. 3. MRCP is contraindicated in pt with a pacemaker. 4. With hx of heart disease, will decrease LR to 150cc/hr. 5. Will order clear liquids po. 6. Will discuss timing of EUS with Dr. Olson: currently scheduled for 04/19, may need to be postponed to allow for improvement of acute inflammation. 7. Analgesics for pain. I have personally seen and examined the patient with JADE Gonzalez. Her note reflects my exam and findings. I agree with her impression and plan. I am concerned about medication related pancreatitis especially Ruizuvia which I would stop. Dexter Irvin M.D.
[2017-05-09] MEDS: MEMANTINE 10 MG TAB PO SCH ×2 (09:07→20:57)
[2017-05-09] MEDS: PREGABALIN 150 MG CAP PO SCH ×3 (09:09→20:57)
--- NOTE | 2017-05-09 10:55 | Progress Note ---
Medicine Progress Note Date & Time of Visit: May 09, 2017 at 10:34. Subjective Pt was seen and examined Sitting in bed with no distress Pt said that his abdominal pain slightly improved He said that he continues to have watery diarrhea denies any chest pain, palpitation, dizziness and SOB Objective Last 8 Hrs Date Time Temp Pulse Resp B/P (MAP) Pulse Ox O2 Delivery O2 Flow Rate FiO2 05/09/17 08:09 Room Air 05/09/17 07:40 36.6 59 18 129/76 (93) 97 Room Air 05/09/17 04:45 36.7 60 16 109/59 (76) 95 Room Air 05/09/17 04:00 Room Air Physical Exam: General- No acute distress Head- atraumatic Eyes- PERRL, EOMI ENT- oropharynx clear Neck- supple, no JVD Lungs- No wheezing, no crackle Heart- regular rhythm; no murmur Abdomen-Tenderness with palpation, hypoactive bowel sound Extremities- no calf tenderness Neuro- alert, oriented x 3; PERRL, EOMI; no facial palsy Skin- warm & dry Laboratory Results: Last 24 Hours Test 05/08/17 13:10 05/08/17 16:58 05/08/17 20:05 05/08/17 21:18 White Blood Count 11.68 K/uL Red Blood Count 4.98 M/uL Hemoglobin 14.4 g/dL Hematocrit 42.3 % Mean Corpuscular Volume 84.9 fL Mean Corpuscular Hemoglobin 28.9 pg Mean Corpuscular Hemoglobin Concent 34.0 g/dl Platelet Count 213 K/uL Mean Platelet Volume 10.5 fL Neutrophils (%) (Auto) 80.5 % Lymphocytes (%) (Auto) 11.9 % Monocytes (%) (Auto) 6.4 % Eosinophils (%) (Auto) 0.6 % Basophils (%) (Auto) 0.3 % Neutrophils # (Auto) 9.41 K/uL Lymphocytes # (Auto) 1.39 K/uL Monocytes # (Auto) 0.75 K/uL Eosinophils # (Auto) 0.07 K/uL Basophils # (Auto) 0.03 K/uL RDW Standard Deviation 40.5 fL RDW Coefficient of Variation 13.2 % Immature Granulocyte % (Auto) 0.3 % Immature Granulocyte # (Auto) 0.03 K/uL Prothrombin Time 18.4 SECONDS Prothromb Time International Ratio 1.7 Activated Partial Thromboplast Time 29.2 SECONDS Partial Thromboplastin Ratio 1.1 Urine Color DK YELLOW Urine Appearance TURBID Urine pH 5.0 Urine Specific [place] 1.033 Urine Protein 3+ Urine Glucose (UA) TRACE Urine Ketones TRACE Urine Occult Blood NEG Urine Nitrite NEG Urine Bilirubin NEG Urine Urobilinogen NEG Urine Leukocyte Esterase NEG Urine WBC (Auto) 1-5 /hpf Urine RBC (Auto) 0-4 /hpf Urine Hyaline Casts (Auto) 10-30 /lpf Urine Epithelial Cells (Auto) >30 /lpf Urine Bacteria (Auto) NEG Urine Renal Epithelial Cells /lpf Urine Crystals AMORPHOUS SEDIMENT Urine Pathogenic Casts 0-3 GRANULAR CASTS /lpf Sodium Level 141 mmol/L Potassium Level 4.3 mmol/L Chloride Level 106 mmol/L Carbon Dioxide Level 27 mmol/L Anion Gap 8.0 mmol/L Blood Urea Nitrogen 18 mg/dl Creatinine 1.40 mg/dl Est Creatinine Clear Calc Drug Dose 65.1 ml/min Estimated GFR () 65.6 Estimated GFR (Non- 56.6 BUN/Creatinine Ratio 12.6 Random Glucose 234 mg/dl Calcium Level 9.2 mg/dl Total Bilirubin 0.3 mg/dl Aspartate Amino Transf (AST/SGOT) 24 U/L Alanine Aminotransferase (ALT/SGPT) 51 U/L Alkaline Phosphatase 116 U/L Total Protein 6.9 gm/dl Albumin 3.9 gm/dl Globulin 3.0 gm/dl Albumin/Globulin Ratio 1.3 Lipase 1657 U/L Bedside Glucose 120 mg/dl 74 mg/dl 107 mg/dl Test 05/09/17 02:31 05/09/17 06:31 05/09/17 06:50 Bedside Glucose 145 mg/dl 161 mg/dl White Blood Count 5.28 K/uL Red Blood Count 4.37 M/uL Hemoglobin 12.3 g/dL Hematocrit 37.9 % Mean Corpuscular Volume 86.7 fL Mean Corpuscular Hemoglobin 28.1 pg Mean Corpuscular Hemoglobin Concent 32.5 g/dl RDW Standard Deviation 43.3 fL RDW Coefficient of Variation 13.6 % Platelet Count 141 K/uL Mean Platelet Volume 10.0 fL Prothrombin Time 22.6 SECONDS Prothromb Time International Ratio 2.0 Sodium Level 145 mmol/L Potassium Level 4.1 mmol/L Chloride Level 113 mmol/L Carbon Dioxide Level 27 mmol/L Anion Gap 5.0 mmol/L Blood Urea Nitrogen 16 mg/dl Creatinine 1.20 mg/dl Est Creatinine Clear Calc Drug Dose 76.6 ml/min Estimated GFR () 79.0 Estimated GFR (Non- 68.1 BUN/Creatinine Ratio 13.6 Random Glucose 161 mg/dl Estimated Average Glucose 217 mg/dl Hemoglobin A1c 9.2 % Calcium Level 7.9 mg/dl Magnesium Level 1.4 mg/dl Total Bilirubin 0.3 mg/dl Direct Bilirubin < 0.1 mg/dl Aspartate Amino Transf (AST/SGOT) 18 U/L Alanine Aminotransferase (ALT/SGPT) 41 U/L Alkaline Phosphatase 85 U/L Total Protein 5.6 gm/dl Albumin 3.1 gm/dl Lipase 346 U/L Assessment & Plan Recurrent Acute Pancreatitis lipase on admission 1656 Lipase trending down to normal today Will start on clear liquid diet lactated ringers decrease to 150 cc, will watch for fluid overload Dilaudid PRN for pain (allergy to morphine) GI on board Schedule for outpatient EUS on 04/19, Might need to postpone the date due to acute pancreatitis triglycerides and IGG 4 pending Electrolytes imbalance Mg 1.4 today Mg replaced continue monitor electrolytes DM2 uncontrolled Ha1c 9.2 should be off of Januvia due to pancreatitis issues with this medication if Ha1c > 9% - should be discharged on insulin for now, hold oral agents and start a sliding scale diabetic education consulted Travon Fiore Coumadin was on hold for possible EGD currently in NSR Will resume coumadin today HTN Lisinopril was on hold due to low BP b-ida with parameters resume lisinopril DVT ppx Coumadin for now CODE STATUS FULL CODE Current Inpatient Medications: Current Inpatient Medications Medications (Trade) Dose Ordered Sig/Stephanie Route Start Time Stop Time Status Last Admin Dose Admin Acetaminophen (Tylenol Tab) 650 mg Q4H PRN PO 05/08/17 16:15 06/07/17 16:14 05/08/17 21:23 650 MG Ondansetron HCl (Zofran Inj) 4 mg Q6H PRN IV 05/08/17 16:15 06/07/17 16:14 05/09/17 09:32 4 MG Hydromorphone HCl (Dilaudid Inj) 1 mg Q4 PRN IV 05/08/17 16:15 05/22/17 16:14 05/09/17 09:32 1 MG Insulin Aspart (novoLOG ASPART) SLIDING SCALE If C... ACHS SC 05/08/17 21:00 06/07/17 20:59 Glucose (Glucose 40% Gel) 15-30 GRAMS 15 GRAMS... UD PRN PO 05/08/17 16:30 06/07/17 16:29 05/08/17 20:19 15 GM Glucose (Glucose Chew Tab) 4-8 Tablets 4 Tabl... UD PRN PO 05/08/17 16:30 06/07/17 16:29 Dextrose (Dextrose 50% 50ML Syringe) 25-50ML OF 50% DW IV FOR... UD PRN IV 05/08/17 16:30 06/07/17 16:29 Glucagon (Glucagon Inj) 1 mg UD PRN SQ 05/08/17 16:30 06/07/17 16:29 Atorvastatin Calcium (Lipitor Tab) 80 mg QPM PO 05/08/17 21:00 06/07/17 20:59 05/08/17 20:01 80 MG Donepezil HCl (Aricept Tab) 10 mg HS PO 05/08/17 21:00 06/07/17 20:59 05/08/17 20:02 10 MG Levothyroxine Sodium (Synthroid Tab) 150 mcg DAILYBB PO 05/09/17 06:00 06/08/17 05:59 05/09/17 05:45 150 MCG Memantine (Namenda Tab) 10 mg BID PO 05/08/17 21:00 06/07/17 20:59 05/09/17 09:07 10 MG Oxcarbazepine (Trileptal Tab) 450 mg BID PO 05/08/17 21:00 06/07/17 20:59 05/09/17 09:06 450 MG Pregabalin (Lyrica Cap) 150 mg TID PO 05/08/17 21:00 06/07/17 20:59 05/09/17 09:09 150 MG Tamsulosin HCl (Flomax Cap) 0.4 mg DAILY PO 05/09/17 09:00 06/08/17 08:59 05/09/17 09:06 0.4 MG Venlafaxine HCl (effeXOR EXTENDED REL CAP) 150 mg DAILY PO 05/09/17 09:00 06/08/17 08:59 05/09/17 09:06 150 MG Warfarin Sodium (Coumadin Tab) 10 mg [id number]@1600 PO 05/09/17 16:00 06/08/17 15:59 Buspirone HCl (Buspar Tab) 10 mg BID PO 05/08/17 21:00 06/07/17 20:59 05/09/17 09:06 10 MG Artificial Tears (Artificial Tears) 1 drops QID PRN OPB 05/08/17 16:45 06/07/17 16:44 Bisoprolol Fumarate (Bisoprolol Fumarate) 20 mg DAILY PO 05/09/17 09:00 06/08/17 08:59 05/09/17 09:00 20 MG Warfarin Sodium (Coumadin Tab) 7 mg [id number]@1600 PO 05/08/17 18:00 06/07/17 17:59 Future Hold Dextrose/Sodium Chloride 1,000 ml @ 150 mls/hr Q6H40M IV 05/08/17 20:15 06/07/17 20:14 05/09/17 07:14 200 MLS/HR Zolpidem Tartrate (Ambien Tab) 5 mg HS PRN PO 05/09/17 00:15 06/08/17 00:14 Magnesium Sulfate 1 gm/Prmx 100 ml @ 100 mls/hr Q1H IV 05/09/17 09:00 05/09/17 11:59 05/09/17 10:30 100 MLS/HR
[2017-05-09] MEDS ORDERED: PROMETHAZINE HCL INJ 12.5 MG in SODIUM CHLORIDE 0.9% 50ML 50 ML IV PRN (15:45)
[2017-05-09] MEDS: WARFARIN SOD 10 MG TAB PO SCH (16:00)
[2017-05-09] MEDS ORDERED: ONDANSETRON INJ 2 MG/ML 2 ML VIAL IV PRN (16:15)
[2017-05-09] MEDS: ONDANSETRON INJ 8 MG in DEXTROSE 5% 50ML 50 ML IV PRN (20:53)
[2017-05-09] MEDS: DONEPEZIL HCL 10 MG TAB PO SCH (20:57)
[2017-05-09] MEDS: ATORVASTATIN 40 MG TAB PO SCH (20:57)
[2017-05-09] MEDS: ZOLPIDEM TARTRATE 5 MG TAB PO PRN (21:53)
[2017-05-10] VITALS (11 sets, daily range): BP systolic 119–180; BP diastolic 77–99; PULSE 59–65; TEMP 36.6–37; O2SAT 95–99; Ht 162.6 cm; Wt 105.7 kg
[2017-05-10] MEDS: HYDROmorphone INJ 1 MG/ML SYR IV PRN ×3 (00:23→22:30)
[2017-05-10] MEDS: D5W AND NSS 1,000 ML IV SCH (04:38)
[2017-05-10] MEDS: LEVOTHYROXINE 150 MCG TAB PO SCH (04:38)
[2017-05-10 06:48] LABS: INR 2.4 (0.9-1.1); PROTHROMBIN TIME (PATIENT) 26.6 SECONDS (9.0-12.0)
[2017-05-10] MEDS: INSULIN ASPART 100 UNITS/ML 3 ML PEN SC SCH ×4 (07:00→21:00)
[2017-05-10 07:23] LABS: BUN/CREATININE RATIO 8.9 (10-20); CALCIUM 8.3 mg/dl (8.5-10.1); CREATININE 1.1 mg/dl (0.60-1.40); MAGNESIUM 1.8 mg/dl (1.8-2.4); POTASSIUM 4.4 mmol/L (3.5-5.1)
[2017-05-10] MEDS: MEMANTINE 10 MG TAB PO SCH ×2 (08:41→21:04)
[2017-05-10] MEDS: BISOPROLOL FUMARATE 10 MG TAB PO SCH (08:41)
[2017-05-10] MEDS: PREGABALIN 150 MG CAP PO SCH ×3 (08:41→21:02)
[2017-05-10] MEDS: SODIUM CHLORIDE 0.45% 1000ML 1,000 ML IV SCH ×2 (08:41→19:20)
[2017-05-10] MEDS: TAMSULOSIN HCL 0.4 MG CAP PO SCH (08:42)
[2017-05-10] MEDS: VENLAFAXINE HCL XR 150 MG CAPXR PO SCH (08:42)
[2017-05-10] MEDS: OXCARBAZEPINE 150 MG TAB PO SCH ×2 (08:42→21:04)
--- NOTE | 2017-05-10 10:31 | Gastroenterology Progress Note ---
Progress Note Date of Service: May 10, 2017 Subjective Pt evaluation today including: conversation w/ patient, physical exam, chart review, lab review, review of studies, review of inpatient medication list Mr. Comer is a 52 yr old male admitted on 05/08 with recurrent pancreatitis. On arrival, lipase over 1000, yesterday 400, LFTs have been normal. Though he did not have a CT scan done on this admission, he reports a CT after [facility] approximately month ago with findings of pancreatitis. Yesterday he felt improved compared to the day but still had a significant amount of nausea and abdominal distention yesterday. Today he is further improved though still with pain with a deep breath. Review of Systems Constitutional: No fever Respiratory: No cough Cardiac: No chest pain Abdomen: + pain, + diarrhea (approximately 6 loose bowel movements since yesterday.), No nausea, No vomiting Male : No dysuria Neuro: No memory loss Psych: No depression symptoms Heme: No abnormal bleeding/bruising Endo: No fatigue Skin: No rash, No jaundice Medications Current Inpatient Medications Medications (Trade) Dose Ordered Sig/Stephanie Route Start Time Stop Time Status Last Admin Dose Admin Acetaminophen (Tylenol Tab) 650 mg Q4H PRN PO 05/08/17 16:15 06/07/17 16:14 05/08/17 21:23 650 MG Hydromorphone HCl (Dilaudid Inj) 1 mg Q4 PRN IV 05/08/17 16:15 05/22/17 16:14 05/10/17 00:23 1 MG Insulin Aspart (novoLOG ASPART) SLIDING SCALE If C... ACHS SC 05/08/17 21:00 06/07/17 20:59 05/09/17 20:33 1 UNITS Glucose (Glucose 40% Gel) 15-30 GRAMS 15 GRAMS... UD PRN PO 05/08/17 16:30 06/07/17 16:29 05/08/17 20:19 15 GM Glucose (Glucose Chew Tab) 4-8 Tablets 4 Tabl... UD PRN PO 05/08/17 16:30 06/07/17 16:29 Dextrose (Dextrose 50% 50ML Syringe) 25-50ML OF 50% DW IV FOR... UD PRN IV 05/08/17 16:30 06/07/17 16:29 Glucagon (Glucagon Inj) 1 mg UD PRN SQ 05/08/17 16:30 06/07/17 16:29 Atorvastatin Calcium (Lipitor Tab) 80 mg QPM PO 05/08/17 21:00 06/07/17 20:59 05/09/17 20:57 80 MG Donepezil HCl (Aricept Tab) 10 mg HS PO 05/08/17 21:00 06/07/17 20:59 05/09/17 20:57 10 MG Levothyroxine Sodium (Synthroid Tab) 150 mcg DAILYBB PO 05/09/17 06:00 06/08/17 05:59 05/10/17 04:38 150 MCG Memantine (Namenda Tab) 10 mg BID PO 05/08/17 21:00 06/07/17 20:59 05/10/17 08:41 10 MG Oxcarbazepine (Trileptal Tab) 450 mg BID PO 05/08/17 21:00 06/07/17 20:59 05/10/17 08:42 450 MG Pregabalin (Lyrica Cap) 150 mg TID PO 05/08/17 21:00 06/07/17 20:59 05/10/17 08:41 150 MG Tamsulosin HCl (Flomax Cap) 0.4 mg DAILY PO 05/09/17 09:00 06/08/17 08:59 05/10/17 08:42 0.4 MG Venlafaxine HCl (effeXOR EXTENDED REL CAP) 150 mg DAILY PO 05/09/17 09:00 06/08/17 08:59 05/10/17 08:42 150 MG Warfarin Sodium (Coumadin Tab) 10 mg SuTuThSa@1600 PO 05/09/17 16:00 06/08/17 15:59 05/09/17 16:00 10 MG Buspirone HCl (Buspar Tab) 10 mg BID PO 05/08/17 21:00 06/07/17 20:59 05/10/17 08:42 10 MG Artificial Tears (Artificial Tears) 1 drops QID PRN OPB 05/08/17 16:45 06/07/17 16:44 Bisoprolol Fumarate (Bisoprolol Fumarate) 20 mg DAILY PO 05/09/17 09:00 06/08/17 08:59 05/10/17 08:41 20 MG Warfarin Sodium (Coumadin Tab) 7 mg MoWeFr@1600 PO 05/08/17 18:00 06/07/17 17:59 Future Hold Zolpidem Tartrate (Ambien Tab) 5 mg HS PRN PO 05/09/17 00:15 06/08/17 00:14 05/09/17 21:53 5 MG Promethazine HCl 12.5 mg/Sodium Chloride 50.5 ml @ 204 mls/hr Q6H PRN IV 05/09/17 15:45 06/08/17 15:44 Ondansetron HCl 8 mg/Dextrose 54 ml @ 216 mls/hr Q6H PRN IV 05/09/17 16:00 06/08/17 15:59 05/09/17 20:53 216 MLS/HR Sodium Chloride 1,000 ml @ 100 mls/hr Q10H IV 05/10/17 08:15 06/09/17 08:14 05/10/17 08:41 100 MLS/HR Objective Vital Signs Date Time Temp Pulse Resp B/P (MAP) Pulse Ox O2 Delivery O2 Flow Rate FiO2 05/10/17 08:00 Room Air 05/10/17 07:14 36.6 60 18 141/85 (103) 98 Room Air 05/10/17 04:30 37.0 59 16 151/77 (101) 96 Room Air 05/10/17 04:30 96 Room Air 05/10/17 00:20 98 Room Air 05/10/17 00:17 36.8 65 18 142/80 (100) 98 Room Air 05/09/17 20:30 96 Room Air 05/09/17 20:28 36.6 60 20 140/86 (104) 96 Room Air 05/09/17 17:02 36.6 60 18 147/85 (105) 94 Room Air 05/09/17 16:04 97 Room Air 05/09/17 12:00 97 Room Air 05/09/17 11:33 36.6 61 18 150/91 (110) 97 Physical Exam General Appearance: no apparent distress Neck: no JVD Respiratory/Chest: lungs clear Cardiovascular: regular rate, rhythm, no JVD, no murmur Abdomen: non tender, soft, + distended (minimally) Extremities: no pedal edema Neurologic/Psych: alert, normal mood/affect, oriented x 3 Laboratory Results Last 24 Hours Test 05/09/17 11:00 05/09/17 16:19 05/09/17 20:05 05/10/17 06:17 Bedside Glucose 169 mg/dl 209 mg/dl 197 mg/dl Prothrombin Time 26.6 SECONDS Prothromb Time International Ratio 2.4 Sodium Level 146 mmol/L Potassium Level 4.4 mmol/L Chloride Level 114 mmol/L Carbon Dioxide Level 28 mmol/L Anion Gap 4.0 mmol/L Blood Urea Nitrogen 10 mg/dl Creatinine 1.10 mg/dl Est Creatinine Clear Calc Drug Dose 84.5 ml/min Estimated GFR () 87.7 Estimated GFR (Non- 75.7 BUN/Creatinine Ratio 8.9 Random Glucose 163 mg/dl Calcium Level 8.3 mg/dl Magnesium Level 1.8 mg/dl Test 05/10/17 07:03 Bedside Glucose 146 mg/dl Assessment and Plan Mr. Comer is a 52-year-old male with recurrent pancreatitis, having 4 episodes since February. He is improving. \ Plan: 1. Stop Januvia 2. Check IGG4 and triglycerides tomorrow AM. 3. Clear liquids most of today, may advance late today or tomorrow if does well but stay with low fat. 4. Will check a stool for c-diff because of diarrhea. 6. Plan is for outpatient endoscopic ultrasound tentatively scheduled for May [address] kang here at [facility]. I have personally seen and examined the patient with JADE Gonzalez on . Her note reflects my exam and findings. I agree with her impression and plan. Doing much better. Slowly advance diet. Dexter Irvin M.D.
--- NOTE | 2017-05-10 12:38 | Progress Note ---
Medicine Progress Note Date & Time of Visit: May 10, 2017 at 12:16. Subjective Pt was seen and examined Lying in bed comfortable with no distress Pt said that he feels fine he said that he does not have any abdominal pain he continues to have diarrhea he tolerates his clear liquid diet Denies any chest pain, palpitation, dizziness and SOB Objective Last 8 Hrs Date Time Temp Pulse Resp B/P (MAP) Pulse Ox O2 Delivery O2 Flow Rate FiO2 05/10/17 11:05 36.8 61 18 119/95 (103) 95 Room Air 05/10/17 08:00 Room Air 05/10/17 07:14 36.6 60 18 141/85 (103) 98 Room Air 05/10/17 04:30 37.0 59 16 151/77 (101) 96 Room Air 05/10/17 04:30 96 Room Air Physical Exam: General- No acute distress Head- atraumatic Eyes- PERRL, EOMI ENT- oropharynx clear Neck- supple, no JVD Lungs- No wheezing, no crackle Heart- regular rhythm; no murmur Abdomen-Tenderness with palpation, normal bowel sound Extremities- no calf tenderness Neuro- alert, oriented x 3; PERRL, EOMI; no facial palsy Skin- warm & dry Laboratory Results: Last 24 Hours Test 05/09/17 16:19 05/09/17 20:05 05/10/17 06:17 05/10/17 07:03 Bedside Glucose 209 mg/dl 197 mg/dl 146 mg/dl Prothrombin Time 26.6 SECONDS Prothromb Time International Ratio 2.4 Sodium Level 146 mmol/L Potassium Level 4.4 mmol/L Chloride Level 114 mmol/L Carbon Dioxide Level 28 mmol/L Anion Gap 4.0 mmol/L Blood Urea Nitrogen 10 mg/dl Creatinine 1.10 mg/dl Est Creatinine Clear Calc Drug Dose 84.5 ml/min Estimated GFR () 87.7 Estimated GFR (Non- 75.7 BUN/Creatinine Ratio 8.9 Random Glucose 163 mg/dl Calcium Level 8.3 mg/dl Magnesium Level 1.8 mg/dl Test 05/10/17 11:01 Bedside Glucose 168 mg/dl Assessment & Plan Recurrent Acute Pancreatitis lipase on admission 1657 Lipase trending down to normal today Will start on clear liquid diet lactated ringers decrease to 150 cc, will watch for fluid overload Dilaudid PRN for pain (allergy to morphine) GI on board Schedule for outpatient EUS on 05/19, Might need to postpone the date due to acute pancreatitis triglycerides and IGG 4 pending 05/10 No abdominal pain Tolerated clear liquid diet will advance diet Schedule for EUS on 05/19 Case discussed with GI Electrolytes imbalance Mg stable IVF change tp 1/2NS continue monitor electrolytes Diarrhea Possible related to IBS Need to check for Cdiff if diarrhea persists DM2 uncontrolled Ha1c 9.2 should be off of Januvia due to pancreatitis issues with this medication if Ha1c > 9% - should be discharged on insulin, but will defer to PCP for now, hold oral agents and start a sliding scale diabetic education consulted Will increase glipizide to 5 mg and continue metformin, d/c januvia A. Fib Coumadin was on hold for possible EGD currently in NSR Continue coumadin, INR 2.4 today HTN Lisinopril was on hold due to low BP b-ida with parameters Resume lisinopril DVT ppx Coumadin for now INR 2.4 CODE STATUS FULL CODE Consultants: Gastro Current Inpatient Medications: Current Inpatient Medications Medications (Trade) Dose Ordered Sig/Stephanie Route Start Time Stop Time Status Last Admin Dose Admin Acetaminophen (Tylenol Tab) 650 mg Q4H PRN PO 05/08/17 16:15 06/07/17 16:14 05/08/17 21:23 650 MG Hydromorphone HCl (Dilaudid Inj) 1 mg Q4 PRN IV 05/08/17 16:15 05/22/17 16:14 05/10/17 00:23 1 MG Insulin Aspart (novoLOG ASPART) SLIDING SCALE If C... ACHS SC 05/08/17 21:00 06/07/17 20:59 05/09/17 20:33 1 UNITS Glucose (Glucose 40% Gel) 15-30 GRAMS 15 GRAMS... UD PRN PO 05/08/17 16:30 06/07/17 16:29 05/08/17 20:19 15 GM Glucose (Glucose Chew Tab) 4-8 Tablets 4 Tabl... UD PRN PO 05/08/17 16:30 06/07/17 16:29 Dextrose (Dextrose 50% 50ML Syringe) 25-50ML OF 50% DW IV FOR... UD PRN IV 05/08/17 16:30 8/16/17 16:29 Glucagon (Glucagon Inj) 1 mg UD PRN SQ 05/08/17 16:30 06/07/17 16:29 Atorvastatin Calcium (Lipitor Tab) 80 mg QPM PO 05/08/17 21:00 06/07/17 20:59 05/09/17 20:57 80 MG Donepezil HCl (Aricept Tab) 10 mg HS PO 05/08/17 21:00 06/07/17 20:59 05/09/17 20:57 10 MG Levothyroxine Sodium (Synthroid Tab) 150 mcg DAILYBB PO 05/09/17 06:00 06/08/17 05:59 05/10/17 04:38 150 MCG Memantine (Namenda Tab) 10 mg BID PO 05/08/17 21:00 06/07/17 20:59 05/10/17 08:41 10 MG Oxcarbazepine (Trileptal Tab) 450 mg BID PO 05/08/17 21:00 06/07/17 20:59 05/10/17 08:42 450 MG Pregabalin (Lyrica Cap) 150 mg TID PO 05/08/17 21:00 06/07/17 20:59 05/10/17 08:41 150 MG Tamsulosin HCl (Flomax Cap) 0.4 mg DAILY PO 05/09/17 09:00 06/08/17 08:59 05/10/17 08:42 0.4 MG Venlafaxine HCl (effeXOR EXTENDED REL CAP) 150 mg DAILY PO 05/09/17 09:00 06/08/17 08:59 05/10/17 08:42 150 MG Warfarin Sodium (Coumadin Tab) 10 mg SuTuThSa@1600 PO 05/09/17 16:00 06/08/17 15:59 05/09/17 16:00 10 MG Buspirone HCl (Buspar Tab) 10 mg BID PO 05/08/17 21:00 06/07/17 20:59 05/10/17 08:42 10 MG Artificial Tears (Artificial Tears) 1 drops QID PRN OPB 05/08/17 16:45 06/07/17 16:44 Bisoprolol Fumarate (Bisoprolol Fumarate) 20 mg DAILY PO 05/09/17 09:00 06/08/17 08:59 05/10/17 08:41 20 MG Warfarin Sodium (Coumadin Tab) 7 mg MoWeFr@1600 PO 05/08/17 18:00 06/07/17 17:59 Future Hold Zolpidem Tartrate (Ambien Tab) 5 mg HS PRN PO 05/09/17 00:15 06/08/17 00:14 05/09/17 21:53 5 MG Promethazine HCl 12.5 mg/Sodium Chloride 50.5 ml @ 204 mls/hr Q6H PRN IV 05/09/17 15:45 06/08/17 15:44 Ondansetron HCl 8 mg/Dextrose 54 ml @ 216 mls/hr Q6H PRN IV 05/09/17 16:00 06/08/17 15:59 05/09/17 20:53 216 MLS/HR Sodium Chloride 1,000 ml @ 100 mls/hr Q10H IV 05/10/17 08:15 06/09/17 08:14 05/10/17 08:41 100 MLS/HR
[2017-05-10] MEDS: WARFARIN PO SCH ×2 (16:23)
[2017-05-10] MEDS: ONDANSETRON INJ 8 MG in DEXTROSE 5% 50ML 50 ML IV PRN (19:19)
[2017-05-10] MEDS ORDERED: TRAMADOL HCL 50 MG TAB PO PRN (20:15)
[2017-05-10] MEDS: ATORVASTATIN 40 MG TAB PO SCH (21:03)
[2017-05-10] MEDS: DONEPEZIL HCL 10 MG TAB PO SCH (21:03)
[2017-05-10] MEDS: METRONIDAZOLE 500 MG TAB PO SCH (21:03)
[2017-05-10] MEDS ORDERED: NURSING VERBAL MED ORDER ONE (21:30)
--- NOTE | 2017-05-10 21:51 | DIAGNOSTIC IMAGING REPORT ---
ABD/PELVIS IV CONTRAST ONLY CT DOSE: 1081.62 mGy.cm HISTORY: Pain pain TECHNIQUE: Multiaxial CT images of the abdomen and pelvis were performed following the use of intravenous contrast. COMPARISON STUDY: Ultrasound 05/08/2017 FINDINGS: Lung bases are clear. Liver spleen and pancreas appear unremarkable. No significant peripancreatic infiltrative changes appreciated. Prior cholecystectomy. Slight hyperemia of several loops of small bowel suggesting a nonspecific small bowel enteritis. No obstructive pattern. Surgical clips adjacent to the anterior splenic margin medially. The colonic pattern is nonobstructive. Bladder is midline. No free fluid within the pelvic cul-de-sac. Mild chronic sigmoid diverticulosis. No evidence for diverticulitis. Several small nonobstructing renal calcifications IMPRESSION: 1. Findings consistent with small bowel enteritis. 2. Mild chronic sigmoid diverticulosis. 3. No evidence for acute diverticulitis. 4. Postoperative changes as noted. 5. Several small nonobstructing renal calcifications The above report was generated using voice recognition software. It may contain grammatical, syntax or spelling errors. Electronically signed by: Evan Sood M.D. 05/10/2017 9:50 PM Dictated Date/Time: 05/10/2017 9:46 PM
[2017-05-10] MEDS: LISINOPRIL 10 MG TAB PO SCH (22:30)
[2017-05-10] MEDS: ZOLPIDEM TARTRATE 5 MG TAB PO PRN (23:48)
[2017-05-11] MEDS: HYDROmorphone INJ 1 MG/ML SYR IV PRN ×2 (02:48→10:18)
[2017-05-11] MEDS: ONDANSETRON INJ 8 MG in DEXTROSE 5% 50ML 50 ML IV PRN ×2 (03:24→10:17)
[2017-05-11] MEDS: LEVOTHYROXINE 150 MCG TAB PO SCH (05:47)
[2017-05-11] MEDS: SODIUM CHLORIDE 0.45% 1000ML 1,000 ML IV SCH ×2 (05:48→13:59)
[2017-05-11 06:37] LABS: INR 2.8 (0.9-1.1); PROTHROMBIN TIME (PATIENT) 31.2 SECONDS (9.0-12.0)
[2017-05-11 06:59] LABS: BUN/CREATININE RATIO 6.6 (10-20); CALCIUM 8.4 mg/dl (8.5-10.1); POTASSIUM 3.5 mmol/L (3.5-5.1)
[2017-05-11] MEDS: INSULIN ASPART 100 UNITS/ML 3 ML PEN SC SCH ×4 (07:30→21:00)
[2017-05-11 07:55] VITALS: BP 120/76; PULSE 60; TEMP 36.5; O2SAT 99
[2017-05-11] MEDS: VENLAFAXINE HCL XR 150 MG CAPXR PO SCH (08:37)
[2017-05-11] MEDS: TAMSULOSIN HCL 0.4 MG CAP PO SCH (08:38)
[2017-05-11] MEDS: METRONIDAZOLE 500 MG TAB PO SCH ×3 (08:38→21:32)
[2017-05-11] MEDS: OXCARBAZEPINE 150 MG TAB PO SCH ×2 (08:38→21:30)
[2017-05-11] MEDS: MEMANTINE 10 MG TAB PO SCH ×2 (08:38→21:29)
[2017-05-11] MEDS: PREGABALIN 150 MG CAP PO SCH ×3 (08:38→21:28)
[2017-05-11] MEDS: BISOPROLOL FUMARATE 10 MG TAB PO SCH (10:18)
--- NOTE | 2017-05-11 12:22 | Gastroenterology Progress Note ---
Progress Note Date of Service: May 11, 2017 Subjective Pt evaluation today including: conversation w/ patient, physical exam, chart review, lab review, review of studies, review of inpatient medication list Mr. Comer is a 52-year-old male with acute, recurrent pancreatitis having had 4 episodes in the past [address] scan with IV contrast yesterday without any pancreatic abnormalities. Stool studies yesterday positive for C. difficile and CT scan did show an enteritis, likely secondary to the C-diff. Patient is doing well on a clear liquid diet but will we tried to increase to full liquid both yesterday morning and then again this morning he got considerable pain about an hour to 2 after eating. Lipase had normalized few days ago. LFTs have been normal. Review of Systems Constitutional: No fever Respiratory: No cough Cardiac: No chest pain Abdomen: + pain, No nausea Musculoskeletal: No joint pain Male : No dysuria Neuro: + memory loss (chronic, unchanged) Psych: No depression symptoms Endo: No fatigue Skin: No rash, No jaundice Medications Current Inpatient Medications Medications (Trade) Dose Ordered Sig/Stephanie Route Start Time Stop Time Status Last Admin Dose Admin Acetaminophen (Tylenol Tab) 650 mg Q4H PRN PO 05/08/17 16:15 06/07/17 16:14 05/08/17 21:23 650 MG Hydromorphone HCl (Dilaudid Inj) 1 mg Q4 PRN IV 05/08/17 16:15 05/22/17 16:14 05/11/17 10:18 1 MG Insulin Aspart (novoLOG ASPART) SLIDING SCALE If C... ACHS SC 05/08/17 21:00 06/07/17 20:59 05/09/17 20:33 1 UNITS Glucose (Glucose 40% Gel) 15-30 GRAMS 15 GRAMS... UD PRN PO 05/08/17 16:30 06/07/17 16:29 05/08/17 20:19 15 GM Glucose (Glucose Chew Tab) 4-8 Tablets 4 Tabl... UD PRN PO 05/08/17 16:30 06/07/17 16:29 Dextrose (Dextrose 50% 50ML Syringe) 25-50ML OF 50% DW IV FOR... UD PRN IV 05/08/17 16:30 06/07/17 16:29 Glucagon (Glucagon Inj) 1 mg UD PRN SQ 05/08/17 16:30 06/07/17 16:29 Atorvastatin Calcium (Lipitor Tab) 80 mg QPM PO 05/08/17 21:00 06/07/17 20:59 05/10/17 21:03 80 MG Donepezil HCl (Aricept Tab) 10 mg HS PO 05/08/17 21:00 06/07/17 20:59 05/10/17 21:03 10 MG Levothyroxine Sodium (Synthroid Tab) 150 mcg DAILYBB PO 05/09/17 06:00 06/08/17 05:59 05/11/17 05:47 150 MCG Memantine (Namenda Tab) 10 mg BID PO 05/08/17 21:00 06/07/17 20:59 05/11/17 08:38 10 MG Oxcarbazepine (Trileptal Tab) 450 mg BID PO 05/08/17 21:00 06/07/17 20:59 05/11/17 08:38 450 MG Pregabalin (Lyrica Cap) 150 mg TID PO 05/08/17 21:00 06/07/17 20:59 05/11/17 08:38 150 MG Tamsulosin HCl (Flomax Cap) 0.4 mg DAILY PO 05/09/17 09:00 06/08/17 08:59 05/11/17 08:38 0.4 MG Venlafaxine HCl (effeXOR EXTENDED REL CAP) 150 mg DAILY PO 05/09/17 09:00 06/08/17 08:59 05/11/17 08:37 150 MG Warfarin Sodium (Coumadin Tab) 10 mg SuTuThSa@1600 PO 05/09/17 16:00 06/08/17 15:59 05/09/17 16:00 10 MG Buspirone HCl (Buspar Tab) 10 mg BID PO 05/08/17 21:00 06/07/17 20:59 05/11/17 08:37 10 MG Artificial Tears (Artificial Tears) 1 drops QID PRN OPB 05/08/17 16:45 06/07/17 16:44 Bisoprolol Fumarate (Bisoprolol Fumarate) 20 mg DAILY PO 05/09/17 09:00 06/08/17 08:59 05/11/17 10:18 20 MG Warfarin Sodium (Coumadin Tab) 7 mg MoWeFr@1600 PO 05/08/17 18:00 06/07/17 17:59 Future hold 05/10/17 16:23 7 MG Zolpidem Tartrate (Ambien Tab) 5 mg HS PRN PO 05/09/17 00:15 06/08/17 00:14 05/10/17 23:48 5 MG Promethazine HCl 12.5 mg/Sodium Chloride 50.5 ml @ 204 mls/hr Q6H PRN IV 05/09/17 15:45 06/08/17 15:44 Ondansetron HCl 8 mg/Dextrose 54 ml @ 216 mls/hr Q6H PRN IV 05/09/17 16:00 06/08/17 15:59 05/11/17 10:17 216 MLS/HR Sodium Chloride 1,000 ml @ 100 mls/hr Q10H IV 05/10/17 08:15 06/09/17 08:14 05/11/17 05:48 100 MLS/HR Metronidazole (Flagyl Tab) 500 mg TID PO 05/10/17 21:00 05/24/17 20:59 05/11/17 08:38 500 MG Tramadol HCl (Ultram Tab) not relieved by tylenol @ Q6H PRN PO 05/10/17 20:15 06/09/17 20:14 05/10/17 21:02 50 MG Lisinopril (Zestril Tab) 10 mg HS PO 05/11/17 21:00 06/10/17 20:59 05/10/17 22:30 10 MG Objective Vital Signs Date Time Temp Pulse Resp B/P (MAP) Pulse Ox O2 Delivery O2 Flow Rate FiO2 05/11/17 08:58 Room Air 05/11/17 07:55 36.5 60 16 120/76 (91) 99 Room Air 05/11/17 00:00 Room Air 05/10/17 23:57 36.8 61 20 158/93 (114) 95 Room Air 05/10/17 18:23 36.9 60 20 157/85 (109) 99 Room Air 05/10/17 18:00 36.7 60 20 97 05/10/17 16:01 97 Room Air 05/10/17 15:59 36.7 60 20 180/99 (126) 97 Room Air Physical Exam General Appearance: no apparent distress Neck: no JVD Respiratory/Chest: lungs clear Cardiovascular: regular rate, rhythm, no JVD, no murmur Abdomen: soft, + tenderness (minimal epigastric) Extremities: no pedal edema Neurologic/Psych: alert, normal mood/affect, oriented x 3 Skin: no jaundice, warm/dry Laboratory Results Last 24 Hours Test 05/10/17 16:21 05/10/17 21:17 05/11/17 06:08 05/11/17 06:11 Bedside Glucose 144 mg/dl 115 mg/dl Sodium Level 143 mmol/L Potassium Level 3.5 mmol/L Chloride Level 109 mmol/L Carbon Dioxide Level 29 mmol/L Anion Gap 5.0 mmol/L Blood Urea Nitrogen 7 mg/dl Creatinine 1.00 mg/dl Est Creatinine Clear Calc Drug Dose 93.0 ml/min Estimated GFR () 98.5 Estimated GFR (Non- 84.9 BUN/Creatinine Ratio 6.6 Random Glucose 110 mg/dl Calcium Level 8.4 mg/dl Triglycerides Level 243 mg/dl Prothrombin Time 31.2 SECONDS Prothromb Time International Ratio 2.8 Test 05/11/17 07:07 05/11/17 11:16 Bedside Glucose 115 mg/dl 157 mg/dl Assessment and Plan Mr. Comer is a 52-year-old male with recurrent pancreatitis, having 4 episodes since February. He is improving. Triglyceride level is normal. He is post cholecystectomy. Autoimmune testing is pending. Now with C. difficile diarrhea , frequency and amount is improved compared to yesterday, on treatment with vancomycin. Plan: 1. Would keep off of Januvia 2. Will review IgG4 levels when available. 3. Will decrease to clear liquid diet again. 4. Continue to treat C. difficile with vancomycin by mouth. 5. Discussed timing of outpatient E US with Dr. kang. He would like to go forward with it on May 19 as previously scheduled. I have personally seen and examined the patient with JADE Gonzalez. Her note reflects my exam and findings. I agree with her impression and plan. Out patient work up already scheduled. Cont current Tx for C. diff. Dexter Irvin M.D.
[2017-05-11 15:57] VITALS: BP 131/75; PULSE 61; TEMP 36.9; O2SAT 94
--- NOTE | 2017-05-11 16:30 | Progress Note ---
Medicine Progress Note Date & Time of Visit: May 11, 2017 at 16:22. Subjective Pt was seen and examined Sitting in bed with no distress Pt said that early today he was feeling nauseated also he had some abdominal tenderness this morning he said that he ate lunch with no problem he said that his diarrhea seems to improve slightly he would like to advance his diet denies any chest pain, palpitation, dizziness and SOB Objective Last 8 Hrs Date Time Temp Pulse Resp B/P (MAP) Pulse Ox O2 Delivery O2 Flow Rate FiO2 05/11/17 15:57 36.9 61 20 131/75 (93) 94 Room Air 05/11/17 08:58 Room Air Physical Exam: General- No acute distress Head- atraumatic Eyes- PERRL, EOMI ENT- oropharynx clear Neck- supple, no JVD Lungs- No wheezing, no crackle Heart- regular rhythm; no murmur Abdomen-Nontender, normal bowel sound Extremities- no calf tenderness Neuro- alert, oriented x 3; PERRL, EOMI; no facial palsy Skin- warm & dry Laboratory Results: Last 24 Hours Test 05/10/17 21:17 05/11/17 06:08 05/11/17 06:11 05/11/17 07:07 Bedside Glucose 115 mg/dl 115 mg/dl Sodium Level 143 mmol/L Potassium Level 3.5 mmol/L Chloride Level 109 mmol/L Carbon Dioxide Level 29 mmol/L Anion Gap 5.0 mmol/L Blood Urea Nitrogen 7 mg/dl Creatinine 1.00 mg/dl Est Creatinine Clear Calc Drug Dose 93.0 ml/min Estimated GFR () 98.5 Estimated GFR (Non- 84.9 BUN/Creatinine Ratio 6.6 Random Glucose 110 mg/dl Calcium Level 8.4 mg/dl Triglycerides Level 243 mg/dl Prothrombin Time 31.2 SECONDS Prothromb Time International Ratio 2.8 Test 05/11/17 11:16 Bedside Glucose 157 mg/dl Assessment & Plan Recurrent Acute Pancreatitis lipase on admission 1657 Lipase trending down to normal today Will start on clear liquid diet lactated ringers decrease to 150 cc, will watch for fluid overload Dilaudid PRN for pain (allergy to morphine) GI on board Schedule for outpatient EUS on 05/19, Might need to postpone the date due to acute pancreatitis triglycerides and IGG 4 pending 05/11 No abdominal pain Tolerated clear Full liquid diet will advance diet to low fat Schedule for EUS on 05/19 C-diff / Diarrhea Stools for c-diff positive started on flagyl 500mg TID On Contact precaution continue monitor electrolytes continue IVF Electrolytes imbalance Mg stable IVF change tp 1/2NS continue monitor electrolytes DM2 uncontrolled Ha1c 9.2 should be off of Januvia due to pancreatitis issues with this medication if Ha1c > 9% - should be discharged on insulin, but will defer to PCP for now, hold oral agents and start a sliding scale diabetic education consulted Will increase glipizide to 5 mg and continue metformin, d/c Januvia A. Fib Coumadin was on hold for possible EGD currently in NSR Continue coumadin, INR 2.8 today HTN Lisinopril was on hold due to low BP b-ida with parameters Resume lisinopril DVT ppx Coumadin for now INR 2.8 CODE STATUS FULL CODE Consultants: Gastro Current Inpatient Medications: Current Inpatient Medications Medications (Trade) Dose Ordered Sig/Stephanie Route Start Time Stop Time Status Last Admin Dose Admin Acetaminophen (Tylenol Tab) 650 mg Q4H PRN PO 05/08/17 16:15 06/07/17 16:14 05/08/17 21:23 650 MG Hydromorphone HCl (Dilaudid Inj) 1 mg Q4 PRN IV 05/08/17 16:15 05/22/17 16:14 05/11/17 10:18 1 MG Insulin Aspart (novoLOG ASPART) SLIDING SCALE If C... ACHS SC 05/08/17 21:00 06/07/17 20:59 05/09/17 20:33 1 UNITS Glucose (Glucose 40% Gel) 15-30 GRAMS 15 GRAMS... UD PRN PO 05/08/17 16:30 06/07/17 16:29 05/08/17 20:19 15 GM Glucose (Glucose Chew Tab) 4-8 Tablets 4 Tabl... UD PRN PO 05/08/17 16:30 06/07/17 16:29 Dextrose (Dextrose 50% 50ML Syringe) 25-50ML OF 50% DW IV FOR... UD PRN IV 05/08/17 16:30 06/07/17 16:29 Glucagon (Glucagon Inj) 1 mg UD PRN SQ 05/08/17 16:30 06/07/17 16:29 Atorvastatin Calcium (Lipitor Tab) 80 mg QPM PO 05/08/17 21:00 06/07/17 20:59 05/10/17 21:03 80 MG Donepezil HCl (Aricept Tab) 10 mg HS PO 05/08/17 21:00 06/07/17 20:59 05/10/17 21:03 10 MG Levothyroxine Sodium (Synthroid Tab) 150 mcg DAILYBB PO 05/09/17 06:00 06/08/17 05:59 05/11/17 05:47 150 MCG Memantine (Namenda Tab) 10 mg BID PO 05/08/17 21:00 06/07/17 20:59 05/11/17 08:38 10 MG Oxcarbazepine (Trileptal Tab) 450 mg BID PO 05/08/17 21:00 06/07/17 20:59 05/11/17 08:38 450 MG Pregabalin (Lyrica Cap) 150 mg TID PO 05/08/17 21:00 06/07/17 20:59 05/11/17 13:58 150 MG Tamsulosin HCl (Flomax Cap) 0.4 mg DAILY PO 05/09/17 09:00 06/08/17 08:59 05/11/17 08:38 0.4 MG Venlafaxine HCl (effeXOR EXTENDED REL CAP) 150 mg DAILY PO 05/09/17 09:00 06/08/17 08:59 05/11/17 08:37 150 MG Warfarin Sodium (Coumadin Tab) 10 mg SuTuThSa@1600 PO 05/09/17 16:00 06/08/17 15:59 05/09/17 16:00 10 MG Buspirone HCl (Buspar Tab) 10 mg BID PO 05/08/17 21:00 06/07/17 20:59 05/11/17 08:37 10 MG Artificial Tears (Artificial Tears) 1 drops QID PRN OPB 05/08/17 16:45 06/07/17 16:44 Bisoprolol Fumarate (Bisoprolol Fumarate) 20 mg DAILY PO 05/09/17 09:00 06/08/17 08:59 05/11/17 10:18 20 MG Warfarin Sodium (Coumadin Tab) 7 mg MoWeFr@1600 PO 05/08/17 18:00 06/07/17 17:59 Future hold 05/10/17 16:23 7 MG Zolpidem Tartrate (Ambien Tab) 5 mg HS PRN PO 05/09/17 00:15 06/08/17 00:14 05/10/17 23:48 5 MG Promethazine HCl 12.5 mg/Sodium Chloride 50.5 ml @ 204 mls/hr Q6H PRN IV 05/09/17 15:45 06/08/17 15:44 Ondansetron HCl 8 mg/Dextrose 54 ml @ 216 mls/hr Q6H PRN IV 05/09/17 16:00 06/08/17 15:59 05/11/17 10:17 216 MLS/HR Sodium Chloride 1,000 ml @ 100 mls/hr Q10H IV 05/10/17 08:15 06/09/17 08:14 05/11/17 13:59 100 MLS/HR Metronidazole (Flagyl Tab) 500 mg TID PO 05/10/17 21:00 05/24/17 20:59 05/11/17 13:58 500 MG Tramadol HCl (Ultram Tab) not relieved by tylenol @ Q6H PRN PO 05/10/17 20:15 06/09/17 20:14 05/10/17 21:02 50 MG Lisinopril (Zestril Tab) 10 mg HS PO 05/11/17 21:00 06/10/17 20:59 05/10/17 22:30 10 MG
[2017-05-11] MEDS: WARFARIN SOD 10 MG TAB PO SCH (17:12)
[2017-05-11] MEDS: ACETAMINOPHEN 325 MG TAB PO PRN (18:11)
[2017-05-11] MEDS: LISINOPRIL 10 MG TAB PO SCH (21:28)
[2017-05-11] MEDS: ATORVASTATIN 40 MG TAB PO SCH (21:31)
[2017-05-11] MEDS: DONEPEZIL HCL 10 MG TAB PO SCH (21:31)
[2017-05-11] MEDS: ZOLPIDEM TARTRATE 5 MG TAB PO PRN (22:22)
[2017-05-11 23:19] VITALS: BP 154/78; PULSE 59; TEMP 36.3; O2SAT 95
[2017-05-12] MEDS: SODIUM CHLORIDE 0.45% 1000ML 1,000 ML IV SCH (05:38)
[2017-05-12] MEDS: LEVOTHYROXINE 150 MCG TAB PO SCH (05:38)
[2017-05-12 07:13] VITALS: BP_SYST 161; BP_SYST 171; BP_DIAS 86; BP_DIAS 99; PULSE 60; TEMP 36.6; O2SAT 97
--- NOTE | 2017-05-12 07:14 | Gastroenterology Progress Note ---
Progress Note Date of Service: May 12, 2017 Subjective Pt evaluation today including: conversation w/ patient, physical exam, chart review, lab review, review of studies, review of inpatient medication list Mr. Comer is a 52 yr old male admitted on 05/08 for acute pancreatitis (evidence Lipase>1000). CT on 05/10 w/o pancreatic changes. C-diff, on Vanco, 7 BMs yesterday, 3 thus far today - becoming thicker but still liquid. TAble to eat a regular consistency low fat diet last evening and this morning w/ o pain. Review of Systems Constitutional: No fever Respiratory: No cough Cardiac: No chest pain Abdomen: + diarrhea, No pain, No nausea, No vomiting Male : No dysuria Neuro: + memory loss (some, chronic) Psych: No depression symptoms Endo: No fatigue Skin: No rash Medications Current Inpatient Medications Medications (Trade) Dose Ordered Sig/Stephanie Route Start Time Stop Time Status Last Admin Dose Admin Acetaminophen (Tylenol Tab) 650 mg Q4H PRN PO 05/08/17 16:15 06/07/17 16:14 05/11/17 18:11 650 MG Hydromorphone HCl (Dilaudid Inj) 1 mg Q4 PRN IV 05/08/17 16:15 05/22/17 16:14 05/11/17 10:18 1 MG Insulin Aspart (novoLOG ASPART) SLIDING SCALE If C... ACHS SC 05/08/17 21:00 06/07/17 20:59 05/09/17 20:33 1 UNITS Glucose (Glucose 40% Gel) 15-30 GRAMS 15 GRAMS... UD PRN PO 05/08/17 16:30 06/07/17 16:29 05/08/17 20:19 15 GM Glucose (Glucose Chew Tab) 4-8 Tablets 4 Tabl... UD PRN PO 05/08/17 16:30 06/07/17 16:29 Dextrose (Dextrose 50% 50ML Syringe) 25-50ML OF 50% DW IV FOR... UD PRN IV 05/08/17 16:30 06/07/17 16:29 Glucagon (Glucagon Inj) 1 mg UD PRN SQ 05/08/17 16:30 06/07/17 16:29 Atorvastatin Calcium (Lipitor Tab) 80 mg QPM PO 05/08/17 21:00 06/07/17 20:59 05/11/17 21:31 80 MG Donepezil HCl (Aricept Tab) 10 mg HS PO 05/08/17 21:00 06/07/17 20:59 05/11/17 21:31 10 MG Levothyroxine Sodium (Synthroid Tab) 150 mcg DAILYBB PO 05/09/17 06:00 06/08/17 05:59 05/12/17 05:38 150 MCG Memantine (Namenda Tab) 10 mg BID PO 05/08/17 21:00 06/07/17 20:59 05/11/17 21:29 10 MG Oxcarbazepine (Trileptal Tab) 450 mg BID PO 05/08/17 21:00 06/07/17 20:59 05/11/17 21:30 450 MG Pregabalin (Lyrica Cap) 150 mg TID PO 05/08/17 21:00 06/07/17 20:59 05/11/17 21:28 150 MG Tamsulosin HCl (Flomax Cap) 0.4 mg DAILY PO 05/09/17 09:00 06/08/17 08:59 05/11/17 08:38 0.4 MG Venlafaxine HCl (effeXOR EXTENDED REL CAP) 150 mg DAILY PO 05/09/17 09:00 06/08/17 08:59 05/11/17 08:37 150 MG Warfarin Sodium (Coumadin Tab) 10 mg SuTuThSa@1600 PO 05/09/17 16:00 06/08/17 15:59 05/11/17 17:12 10 MG Buspirone HCl (Buspar Tab) 10 mg BID PO 05/08/17 21:00 06/07/17 20:59 05/11/17 21:31 10 MG Artificial Tears (Artificial Tears) 1 drops QID PRN OPB 05/08/17 16:45 06/07/17 16:44 Bisoprolol Fumarate (Bisoprolol Fumarate) 20 mg DAILY PO 05/09/17 09:00 06/08/17 08:59 05/11/17 10:18 20 MG Warfarin Sodium (Coumadin Tab) 7 mg MoWeFr@1600 PO 05/08/17 18:00 06/07/17 17:59 Future hold 05/10/17 16:23 7 MG Zolpidem Tartrate (Ambien Tab) 5 mg HS PRN PO 05/09/17 00:15 06/08/17 00:14 05/11/17 22:22 5 MG Promethazine HCl 12.5 mg/Sodium Chloride 50.5 ml @ 204 mls/hr Q6H PRN IV 05/09/17 15:45 06/08/17 15:44 Ondansetron HCl 8 mg/Dextrose 54 ml @ 216 mls/hr Q6H PRN IV 05/09/17 16:00 06/08/17 15:59 05/11/17 10:17 216 MLS/HR Sodium Chloride 1,000 ml @ 70 mls/hr [id number] IV 05/10/17 08:15 06/09/17 08:14 05/12/17 05:38 70 MLS/HR Metronidazole (Flagyl Tab) 500 mg TID PO 05/10/17 21:00 05/24/17 20:59 05/11/17 21:32 500 MG Tramadol HCl (Ultram Tab) not relieved by tylenol @ Q6H PRN PO 05/10/17 20:15 06/09/17 20:14 05/10/17 21:02 50 MG Lisinopril (Zestril Tab) 10 mg HS PO 05/11/17 21:00 06/10/17 20:59 05/11/17 21:28 10 MG Objective Vital Signs Date Time Temp Pulse Resp B/P (MAP) Pulse Ox O2 Delivery O2 Flow Rate FiO2 05/12/17 00:00 Room Air 05/11/17 23:19 36.3 59 18 154/78 (103) 95 Room Air 05/11/17 15:57 36.9 61 20 131/75 (93) 94 Room Air 05/11/17 08:58 Room Air 05/11/17 07:55 36.5 60 16 120/76 (91) 99 Room Air Physical Exam General Appearance: no apparent distress Respiratory/Chest: lungs clear Cardiovascular: no edema, no murmur Abdomen: normal bowel sounds, non tender, soft Extremities: normal range of motion, no pedal edema Neurologic/Psych: alert, normal mood/affect, oriented x 3 Skin: no jaundice Laboratory Results Last 24 Hours Test 05/11/17 11:16 05/11/17 16:27 05/11/17 20:15 05/12/17 05:51 Bedside Glucose 157 mg/dl 185 mg/dl 144 mg/dl Assessment and Plan Mr. Comer is a 52-year-old male with recurrent pancreatitis, having 4 episodes since February. He is improving. Triglyceride level is normal. He is post cholecystectomy. Autoimmune testing is pending. Now with C. difficile diarrhea , frequency and amount is improved compared to yesterday, on treatment with vancomycin. Plan: 1. Would keep off of Januvia 2. Will review IgG4 levels when available. 3. Continue low fat diet. 4. Continue to treat C. difficile with vancomycin by mouth. 5. Discussed timing of outpatient EUS with Dr. Olson on 05/19. Pt aware. 6. GI will sign off. I have personally seen the patient with JADE Gonzalez. Her note reflects my exam and findings. I agree with her impression and plan. Tolerating diet with no more abdominal pain. Out patient work up as above. Dexter Irvin M.D.
[2017-05-12 07:36] LABS: INR 2.5 (0.9-1.1); PROTHROMBIN TIME (PATIENT) 27.4 SECONDS (9.0-12.0)
[2017-05-12] MEDS: INSULIN ASPART 100 UNITS/ML 3 ML PEN SC SCH ×3 (07:56→17:16)
[2017-05-12 07:58] LABS: BUN/CREATININE RATIO 8.1 (10-20); CALCIUM 8.8 mg/dl (8.5-10.1); CREATININE 1.1 mg/dl (0.60-1.40); MAGNESIUM 1.5 mg/dl (1.8-2.4); POTASSIUM 3.7 mmol/L (3.5-5.1)
[2017-05-12] MEDS: BISOPROLOL FUMARATE 10 MG TAB PO SCH (08:45)
[2017-05-12] MEDS: OXCARBAZEPINE 150 MG TAB PO SCH (08:45)
[2017-05-12] MEDS: VENLAFAXINE HCL XR 150 MG CAPXR PO SCH (08:45)
[2017-05-12] MEDS: TAMSULOSIN HCL 0.4 MG CAP PO SCH (08:45)
[2017-05-12] MEDS: MEMANTINE 10 MG TAB PO SCH (08:45)
[2017-05-12] MEDS: METRONIDAZOLE 500 MG TAB PO SCH ×2 (08:45→13:40)
[2017-05-12] MEDS: PREGABALIN 150 MG CAP PO SCH ×2 (08:47→13:40)
[2017-05-12] MEDS: ONDANSETRON INJ 8 MG in DEXTROSE 5% 50ML 50 ML IV PRN (09:10)
[2017-05-12] MEDS: MAGNESIUM SULFATE 1GM / D5W 1 GM in PREMIXED IN D5W 100 ML IV SCH ×2 (11:45→12:51)
--- NOTE | 2017-05-12 12:07 | Progress Note ---
Medicine Progress Note Date & Time of Visit: May 12, 2017 at 11:53. Subjective Pt was seen and examined Sitting at the edge of the bed with no distress Pt said that he feels fine He said that he tolerates low fat diet yesterday and today he said that he continues to have the diarrhea but seems like the stools started to get alittle soft Denies any chest pain, palpitation, dizziness, SOB, palpitation and abdominal pain Objective Last 8 Hrs Date Time Temp Pulse Resp B/P (MAP) Pulse Ox O2 Delivery O2 Flow Rate FiO2 05/12/17 08:45 Room Air 05/12/17 07:13 36.6 60 18 171/86 (114) 97 Room Air 161/99 (119) Physical Exam: General- No acute distress Head- atraumatic Eyes- PERRL, EOMI ENT- oropharynx clear Neck- supple, no JVD Lungs- No wheezing, no crackle Heart- regular rhythm; no murmur Abdomen-Nontender, normal bowel sound Extremities- no calf tenderness Neuro- alert, oriented x 3; PERRL, EOMI; no facial palsy Skin- warm & dry Laboratory Results: Last 24 Hours Test 05/11/17 16:27 05/11/17 20:15 05/12/17 05:51 05/12/17 07:41 Bedside Glucose 185 mg/dl 144 mg/dl 141 mg/dl Prothrombin Time 27.4 SECONDS Prothromb Time International Ratio 2.5 Sodium Level 144 mmol/L Potassium Level 3.7 mmol/L Chloride Level 110 mmol/L Carbon Dioxide Level 26 mmol/L Anion Gap 8.0 mmol/L Blood Urea Nitrogen 9 mg/dl Creatinine 1.10 mg/dl Est Creatinine Clear Calc Drug Dose 84.5 ml/min Estimated GFR () 87.7 Estimated GFR (Non- 75.7 BUN/Creatinine Ratio 8.1 Random Glucose 135 mg/dl Calcium Level 8.8 mg/dl Magnesium Level 1.5 mg/dl Assessment & Plan Recurrent Acute Pancreatitis lipase on admission 1657 Lipase trending down to normal today Will start on clear liquid diet lactated ringers decrease to 150 cc, will watch for fluid overload Dilaudid PRN for pain (allergy to morphine) GI on board Schedule for outpatient EUS on 05/19, Might need to postpone the date due to acute pancreatitis triglycerides and IGG 4 pending 05/12 No abdominal pain Tolerated low fat diet Discontinue Januvia due to the recurrent pancreatitis Schedule for EUS on 05/19 C-diff / Diarrhea Stools for c-diff positive Continue Flagyl 500mg TID On Contact precaution continue monitor electrolytes Will discharge home today Advised pt to keep himself hydrate Electrolytes imbalance Du to GI loss from the diarrhea Mg replaced continue monitor electrolytes will start on mg supplement DM2 uncontrolled Ha1c 9.2 should be off of Januvia due to pancreatitis issues with this medication if Ha1c > 9% - should be discharged on insulin, but will defer to PCP for now, hold oral agents and start a sliding scale diabetic education consulted Will increase glipizide to 5 mg and continue metformin, d/c Januvia Monitor blood sugar A. Fib Coumadin was on hold for possible EGD currently in NSR Continue coumadin, INR 2.5 today Follow up with the coag clinic HTN Lisinopril was on hold due to low BP b-ida with parameters Resumed lisinopril DVT ppx Coumadin for now INR 2.5 CODE STATUS FULL CODE DISPOSITION Will discharge home today Consultants: Gastro Current Inpatient Medications: Current Inpatient Medications Medications (Trade) Dose Ordered Sig/Stephanie Route Start Time Stop Time Status Last Admin Dose Admin Acetaminophen (Tylenol Tab) 650 mg Q4H PRN PO 05/08/17 16:15 06/07/17 16:14 05/11/17 18:11 650 MG Hydromorphone HCl (Dilaudid Inj) 1 mg Q4 PRN IV 05/08/17 16:15 05/22/17 16:14 05/11/17 10:18 1 MG Insulin Aspart (novoLOG ASPART) SLIDING SCALE If C... ACHS SC 05/08/17 21:00 06/07/17 20:59 05/09/17 20:33 1 UNITS Glucose (Glucose 40% Gel) 15-30 GRAMS 15 GRAMS... UD PRN PO 05/08/17 16:30 06/07/17 16:29 05/08/17 20:19 15 GM Glucose (Glucose Chew Tab) 4-8 Tablets 4 Tabl... UD PRN PO 05/08/17 16:30 06/07/17 16:29 Dextrose (Dextrose 50% 50ML Syringe) 25-50ML OF 50% DW IV FOR... UD PRN IV 05/08/17 16:30 06/07/17 16:29 Glucagon (Glucagon Inj) 1 mg UD PRN SQ 05/08/17 16:30 06/07/17 16:29 Atorvastatin Calcium (Lipitor Tab) 80 mg QPM PO 05/08/17 21:00 06/07/17 20:59 05/11/17 21:31 80 MG Donepezil HCl (Aricept Tab) 10 mg HS PO 05/08/17 21:00 06/07/17 20:59 05/11/17 21:31 10 MG Levothyroxine Sodium (Synthroid Tab) 150 mcg DAILYBB PO 05/09/17 06:00 06/08/17 05:59 05/12/17 05:38 150 MCG Memantine (Namenda Tab) 10 mg BID PO 05/08/17 21:00 06/07/17 20:59 05/12/17 08:45 10 MG Oxcarbazepine (Trileptal Tab) 450 mg BID PO 05/08/17 21:00 06/07/17 20:59 05/12/17 08:45 450 MG Pregabalin (Lyrica Cap) 150 mg TID PO 05/08/17 21:00 06/07/17 20:59 05/12/17 08:47 150 MG Tamsulosin HCl (Flomax Cap) 0.4 mg DAILY PO 05/09/17 09:00 06/08/17 08:59 05/12/17 08:45 0.4 MG Venlafaxine HCl (effeXOR EXTENDED REL CAP) 150 mg DAILY PO 05/09/17 09:00 06/08/17 08:59 05/12/17 08:45 150 MG Warfarin Sodium (Coumadin Tab) 10 mg SuTuThSa@1600 PO 05/09/17 16:00 06/08/17 15:59 05/11/17 17:12 10 MG Buspirone HCl (Buspar Tab) 10 mg BID PO 05/08/17 21:00 06/07/17 20:59 05/12/17 08:45 10 MG Artificial Tears (Artificial Tears) 1 drops QID PRN OPB 05/08/17 16:45 06/07/17 16:44 Bisoprolol Fumarate (Bisoprolol Fumarate) 20 mg DAILY PO 05/09/17 09:00 06/08/17 08:59 05/12/17 08:45 20 MG Warfarin Sodium (Coumadin Tab) 7 mg MoWeFr@1600 PO 05/08/17 18:00 06/07/17 17:59 Future hold 05/10/17 16:23 7 MG Zolpidem Tartrate (Ambien Tab) 5 mg HS PRN PO 05/09/17 00:15 06/08/17 00:14 05/11/17 22:22 5 MG Promethazine HCl 12.5 mg/Sodium Chloride 50.5 ml @ 204 mls/hr Q6H PRN IV 05/09/17 15:45 06/08/17 15:44 Ondansetron HCl 8 mg/Dextrose 54 ml @ 216 mls/hr Q6H PRN IV 05/09/17 16:00 06/08/17 15:59 05/12/17 09:10 216 MLS/HR Sodium Chloride 1,000 ml @ 70 mls/hr [id number] IV 05/10/17 08:15 06/09/17 08:14 05/12/17 05:38 70 MLS/HR Metronidazole (Flagyl Tab) 500 mg TID PO 05/10/17 21:00 05/24/17 20:59 05/12/17 08:45 500 MG Tramadol HCl (Ultram Tab) not relieved by tylenol @ Q6H PRN PO 05/10/17 20:15 06/09/17 20:14 05/10/17 21:02 50 MG Lisinopril (Zestril Tab) 10 mg HS PO 05/11/17 21:00 06/10/17 20:59 05/11/17 21:28 10 MG Magnesium Sulfate 1 gm/Prmx 100 ml @ 100 mls/hr Q1H IV 05/12/17 11:30 05/12/17 13:29 05/12/17 11:45 100 MLS/HR
[2017-05-12 15:07] VITALS: BP 171/90; PULSE 62; TEMP 37.2; O2SAT 92
[2017-05-12] MEDS: WARFARIN PO SCH ×2 (16:25)
[2017-05-12] MEDS ORDERED: GLC500 PO ×2 (16:28→17:11)
[2017-05-12] MEDS ORDERED: MTR500 PO (16:28)
[2017-05-12] MEDS ORDERED: GLIP-197 PO (16:28)
--- NOTE | 2017-05-12 16:39 | Discharge Instructions ---
Discharge Instructions Date of Service May 12, 2017. Admission Reason for Admission: Acute Pancreatitis Discharge Discharge Diagnosis / Problem: Acute Pancreatitis, C-diff, Electrolytes imbalance, Diabetes type 2 Discharge Goals Goal(s): Decrease discomfort, Improve function, Increase independence, Improve disease control Activity Recommendations Activity Limitations: resume your previous activity (as tolerated) . Instructions / Follow-Up Instructions / Follow-Up Follow up with Dr. DIAZ (Dr. Britton's partner) on 05/17 @ 10:15 am Endoscopy ultrasound schedule for 05/19 Follow up with the Coumadin clinic for the INR (INR today 2.5) Complete the course of antibiotic with Flagyl Monitor magnesium level Low fat diet and advanced as tolerated increase oral hydration to avoid dehydration from the diarrhea Monitor blood sugar Follow a healthy diet and limited concentrated sweet intake Januvia discontinued due to the recurrent pancreatitis Current Hospital Diet Patient's current hospital diet: Diabetes Type 2 Diet, Low Fat Diet Discharge Diet Recommended Diet: Diabetes Type 2 Diet, Low Fat Diet Pending Studies Studies pending at discharge: no Laboratory Results Hemoglobin A1c Test 05/09/17 06:31 Range/Units Estimated Average Glucose 217 mg/dl Hemoglobin A1c 9.2 H 4.5-5.6 % Lipid Panel Test 05/11/17 06:08 Range/Units Triglycerides Level 243 H 0-150 mg/dl Medical Emergencies . Who to Call and When: Medical Emergencies: If at any time you feel your situation is an emergency, please call 911 immediately. . Non-Emergent Contact Non-Emergency issues call your: Primary Care Provider Call Non-Emergent contact if: you have a fever, you have any medication questions . . "Provider Documentation" section prepared by Alondra Hickman. . VTE Core Measure Inpt VTE Proph given/why not?: Warfarin (Coumadin)
[2017-05-12] MEDS ORDERED: MGNO400 PO (16:41)
[2017-05-12 16:58] VITALS: BP 171/90; PULSE 62; TEMP 37.2; O2SAT 92
--- NOTE | 2017-05-12 17:21 | Discharge Summary ---
Discharge Summary Date of Service May 12, 2017. Discharge Summary Admission Date: May 08, 2017 at 15:29 Discharge Date: May 12, 2017 Discharge Disposition: Home Principal Diagnosis: Acute Pancreatitis Secondary Diagnoses/Problems: C- diff Recurrent pancreatitis DM type 2 Electrolytes imbalance A. Fib HTN Procedures: ABD/PELVIS IV CONTRAST ONLY CT DOSE: 1081.62 mGy.cm HISTORY: Pain pain TECHNIQUE: Multiaxial CT images of the abdomen and pelvis were performed following the use of intravenous contrast. COMPARISON STUDY: Ultrasound 05/08/2017 FINDINGS: Lung bases are clear. Liver spleen and pancreas appear unremarkable. No significant peripancreatic infiltrative changes appreciated. Prior cholecystectomy. Slight hyperemia of several loops of small bowel suggesting a nonspecific small bowel enteritis. No obstructive pattern. Surgical clips adjacent to the anterior splenic margin medially. The colonic pattern is nonobstructive. Bladder is midline. No free fluid within the pelvic cul-de-sac. Mild chronic sigmoid diverticulosis. No evidence for diverticulitis. Several small nonobstructing renal calcifications IMPRESSION: 1. Findings consistent with small bowel enteritis. 2. Mild chronic sigmoid diverticulosis. 3. No evidence for acute diverticulitis. 4. Postoperative changes as noted. 5. Several small nonobstructing renal calcifications The above report was generated using voice recognition software. It may contain grammatical, syntax or spelling errors. Electronically signed by: Evan Sood M.D. 05/10/2017 9:50 PM Dictated Date/Time: 05/10/2017 9:46 PM (PANCREAS) ABDOMEN LTD CLINICAL HISTORY: hx of pancreatitis cyst? Mesh in abd pancreatitis TECHNIQUE: Ultrasound COMPARISON STUDY: None FINDINGS: Patient is status post cholecystectomy. Common bile that 5 mm. Liver is uniform throughout. Pancreas is not seen due to overlying bowel content. Right kidney is negative for hydronephrosis. IMPRESSION: 1. Nonvisualization of the pancreas due to overlying bowel content. 2. Otherwise negative study post cholecystectomy The above report was generated using voice recognition software. It may contain grammatical, syntax or spelling errors. Electronically signed by: Evan Sood M.D. 05/08/2017 2:41 PM Dictated Date/Time: 05/08/2017 2:40 PM Consultations: Gastro Medication Reconciliation New Medications: Magnesium Oxide (Magnesium-Oxide) 400 Mg Tab 1 TAB PO BID for 15 Days Metformin HCl (Metformin HCl) 500 Mg Tab 500 MG PO BID for 30 Days, #60 TAB Metronidazole (Metronidazole) 500 Mg Tab 500 MG PO TID for 8 Days, #24 TAB Changed Medications: Glipizide (Glipizide Er) 5 Mg Tab 1 TAB PO DAILY for 30 Days, #30 TAB 5 Refills (Changed from: Glipizide ( Glipizide Er) 2.5 Mg Tab 2.5 Mg PO DAILY) Continued Medications: Qypqrfs-Pljdainclnivf-Tpswbdyo (Excedrin Migraine) 1 Tab Tab 2 TABS PO Q6 PRN for Migraine Not to exceed 3 grams/ 24 hours of all acetaminophen products combined. Atorvastatin (Lipitor) 80 Mg Tab 80 MG PO QPM Bisoprolol Fumarate (Zebeta) 5 Mg Tab 20 MG PO DAILY 10MG TABLETS. TAKE 2 TABLETS ONCE DAILY Buspirone Hcl (Buspirone Hcl) 10 Mg Tab 10 MG PO BID Carboxymethylcellulose Sodium (Eq Restore Tears) 0.5 % Benigno 1 DROP OPB QID PRN for dry eyes Donepezil Hydrochloride (Aricept) 10 Mg Tab 10 MG PO HS Levothyroxine Sodium (Levothyroxine Sodium) 150 Mcg Tab 1 TAB PO QAM Lisinopril (Lisinopril) 10 Mg Tab 1 TAB PO DAILY Memantine (Namenda) 10 Mg Tab 10 MG PO BID, TAB Ondansetron Hcl (Zofran) 4 Mg Tab 4 MG PO Q8 PRN for Nausea Oxcarbazepine (Trileptal) 300 Mg Tab 450 MG PO BID Oxycodone/Acetaminophen 10MG/325MG (Percocet 10MG/325MG) Tab 1 TAB PO Q6 PRN for Pain Pregabalin (Lyrica) 50 Mg Cap 150 MG PO TID Tamsulosin Hcl (Flomax) 0.4 Mg Cap 0.4 MG PO DAILY, CAP Venlafaxine Hcl (Effexor Extended Rel) 150 Mg Cap 150 MG PO DAILY Warfarin Sod (Coumadin) 6 Mg Tab 7 MG PO UD Take 7 mg by mouth on Monday, Monday, Monday Warfarin Sod (Coumadin) 5 Mg Tab 10 MG PO UD Take 10 mg PO on Monday, Monday, , Monday Discontinued Medications: Sitagliptin-Metformin Hcl (Janumet Xr) 1 Tab Tab 1 TAB PO QPM Janumet 50-500. Take 1 tablet by mouth once daily at supper. Sitagliptin-Metformin Hcl (Janumet) 1 Tab Tab 1 TAB PO QAM for 30 Days, #30 TAB 5 Refills Janumet 50-1000 mg. Take 1 tablet by mouth daily in the morning. Admission Information HPI (per Admitting provider): This is a 52 y/o male with PMH of GERD s/p fundoplication, history of pancreatitis, hx cholecystectomy, hx hernia repair, DM type 2, AF on Coumadin, sinus node dysfunction s/p pacemaker, hypertension, dyslipidemia, and other problems listed below who presents to the ED with epigastric abdominal pain. Patient is followed by Moon Trevino. Patient reports onset of abdominal pain around 9:30 this morning described as stabbing and pressure which states felt similar to prior pancreatitis. Pain is located in epigastrium with radiation to his back. The pain waxes and wanes in severity and worsens with deep inspiration and dry heaving. He notes improvement with IV Dilaudid given in ER. He notes he was unable to eat today and was nauseous with dry heaving, however states he is unable to vomit due to hx of fundoplication. Had episode of liquid stool this morning. Pt denies fever, chills, chest pain, SOB, hematochezia, melena, urinary change.Patient denies any recent alcohol intake or unusual food intake. Patient was recently hospitalized at [facility] in 02/2017, seen at [facility] 03/24, and admitted 03/2017 for pancreatitis. Per [facility] note, CT scans at [facility] were unremarkable with normal pancreas and no signs of biliary ductal dilatation. He was noted to have elevated lipase >1500 and mild LFT elevations. Triglycerides were noted to be 198. MRCP could not be done due to pacemaker. Per GI note had A1c of 10 on [facility] admission. Patient is scheduled for EUS later this month. Physical Exam (per Admitting): General Appearance: WD/WN, no apparent distress, + pertinent finding ( at bedside) Head: normocephalic, atraumatic Eyes: normal inspection ENT: hearing grossly normal, TMs normal, pharynx normal Neck: supple, trachea midline Respiratory/Chest: lungs clear, normal breath sounds, no respiratory distress, no accessory muscle use Cardiovascular: regular rate, rhythm, no murmur Abdomen/GI: normal bowel sounds, soft, + pertinent finding (tender in epigastrium and RUQ) Back: no CVA tenderness Extremities/Musculoskelatal: no calf tenderness, no pedal edema Neurologic/Psych: alert, normal mood/affect, oriented x 3 Skin: normal color, warm/dry Hospital Course Recurrent Acute Pancreatitis lipase on admission 1657 Lipase trending down to normal today Will start on clear liquid diet lactated ringers decrease to 150 cc, will watch for fluid overload Dilaudid PRN for pain (allergy to morphine) GI on board Schedule for outpatient EUS on 05/19, Might need to postpone the date due to acute pancreatitis triglycerides and IGG 4 pending 05/12 No abdominal pain Tolerated low fat diet Discontinue Januvia due to the recurrent pancreatitis Schedule for EUS on 05/19 C-diff / Diarrhea Stools for c-diff positive Continue Flagyl 500mg TID On Contact precaution continue monitor electrolytes Will discharge home today Advised pt to keep himself hydrate Electrolytes imbalance Du to GI loss from the diarrhea Mg replaced continue monitor electrolytes will start on mg supplement DM2 uncontrolled Ha1c 9.2 should be off of Januvia due to pancreatitis issues with this medication if Ha1c > 9% - should be discharged on insulin, but will defer to PCP for now, hold oral agents and start a sliding scale diabetic education consulted Will increase glipizide to 5 mg and continue metformin, d/c Januvia Monitor blood sugar A. Fib Coumadin was on hold for possible EGD currently in [facility] Continue coumadin, INR 2.5 today Follow up with the coag clinic HTN Lisinopril was on hold due to low BP b-ida with parameters Resumed lisinopril DVT ppx Coumadin for now INR 2.5 CODE STATUS FULL CODE DISPOSITION Will discharge home today Total time spent on discharge = 35 minutes This includes examination of the patient, discharge planning, medication reconciliation, and communication with other providers. Discharge Instructions Discharge Instructions Date of Service May 12, 2017. Admission Reason for Admission: Acute Pancreatitis Discharge Discharge Diagnosis / Problem: Acute Pancreatitis, C-diff, Electrolytes imbalance, Diabetes type 2 Discharge Goals Goal(s): Decrease discomfort, Improve function, Increase independence, Improve disease control Activity Recommendations Activity Limitations: resume your previous activity (as tolerated) . Instructions / Follow-Up Instructions / Follow-Up Follow up with Dr. DIAZ (Dr. Britton's partner) on 05/17 @ 10:15 am Endoscopy ultrasound schedule for 05/19 Follow up with the Coumadin clinic for the INR (INR today 2.5) Complete the course of antibiotic with Flagyl Monitor magnesium level Low fat diet and advanced as tolerated Monitor blood sugar Follow a healthy diet and limited concentrated sweet intake Januvia discontinued due to the recurrent pancreatitis Current Hospital Diet Patient's current hospital diet: Diabetes Type 2 Diet, Low Fat Diet Discharge Diet Recommended Diet: Diabetes Type 2 Diet, Low Fat Diet Pending Studies Studies pending at discharge: no Laboratory Results Hemoglobin A1c Test 05/09/17 06:31 Range/Units Estimated Average Glucose 217 mg/dl Hemoglobin A1c 9.2 H 4.5-5.6 % Lipid Panel Test 05/11/17 06:08 Range/Units Triglycerides Level 243 H 0-150 mg/dl Medical Emergencies . Who to Call and When: Medical Emergencies: If at any time you feel your situation is an emergency, please call 911 immediately. . Non-Emergent Contact Non-Emergency issues call your: Primary Care Provider Call Non-Emergent contact if: you have a fever, you have any medication questions . . "Provider Documentation" section prepared by Alondra Hickman. . VTE Core Measure Inpt VTE Proph given/why not?: Warfarin (Coumadin) Additional Copies To Alejandro Britton D.O.; LAZ DIAZ
== END 2017-05-12 17:34 | disposition home or self-care (01) | DRG 439 ==
LOC: C.EDB 12:36 → C.2E 15:29 → ENRESERV 15:47 → EDBEDREQ 05-10 17:42 → ENRESERV 05-10 17:47 → C.MS2W 05-10 18:13
PROVIDERS: ADMIT Family Medicine; ATTEND Internal Medicine
DX: K85.80 Other acute pancreatitis without necrosis or infection (principal); A04.7 Enterocolitis due to Clostridium difficile; I10 Essential (primary) hypertension; I48.91 Unspecified atrial fibrillation; K21.9 Gastro-esophageal reflux disease without esophagitis; E11.65 Type 2 diabetes mellitus with hyperglycemia; E87.5 Hyperkalemia; E03.9 Hypothyroidism, unspecified; Z79.01 Long term (current) use of anticoagulants; Z79.84 Long term (current) use of oral hypoglycemic drugs; Z79.899 Other long term (current) drug therapy; Z95.0 Presence of cardiac pacemaker; Z87.891 Personal history of nicotine dependence

== ENCOUNTER 2017-05-19 08:41 | Day surgery (SDC) | payer OTHER ==
[2017-05-01 10:12] VITALS: Ht 162.6 cm; Wt 100.4 kg
[~2017-05-19] VITALS: Ht 162.6 cm; Wt 100.4 kg
[~2017-05-19 08:41] MED LIST changes: -ARTIOIN2; +ATOR-26 PO; -ATOR10TA88 PO; -BISO10TA PO; +BISO5TAB3 PO; +BUSP-8 PO; -BUSP30TA2 PO; -CARB0.5D28; +CARB1DRO OPB; +CMD5 PO; +DONE10TA12 PO; -DONE23TA PO; -EFF75 PO; -GLC5 PO; +GLC500 PO; +GLIP-197 PO; +LACTATED RINGER'S 1000ML 1,000 ML IV SCH; +MGNO400 PO; +MTR500 PO; +ONDA4TAB46 PO; -OXCA150T2 PO; -PRLSR20 PO; -SITA1TAB21 PO; -SITA50TA5 PO; +SODIUM CHLORIDE 0.9% 500ML 500 ML IV ONE; +VENL150C56 PO; -WARF5TAB90 PO
[2017-05-19] MEDS ORDERED: MAGN400T6 PO (09:25)
[2017-05-19] MEDS ORDERED: METR-163 PO (09:25)
[2017-05-19] MEDS ORDERED: GLC/500 PO (09:25)
[2017-05-19 09:29] VITALS: BP 172/95; PULSE 60; TEMP 36.8; O2SAT 93
[2017-05-19 09:36] LABS: INR 1.3 (0.9-1.1); PARTIAL THROMBOPLASTIN RATIO 1.1; PROTHROMBIN TIME (PATIENT) 14.5 SECONDS (9.0-12.0)
[2017-05-19] MEDS ORDERED: FENTANYL CITRATE INJ 50 MCG/1 ML 2 ML VIAL ONE (09:39)
[2017-05-19] MEDS ORDERED: MIDAZOLAM HCL 1 MG/ML 2ML VIAL ONE (09:39)
[2017-05-19] MEDS ORDERED: ATROPINE SULFATE 0.1 MG/ML 5ML SYR IV PRN (10:15)
[2017-05-19] MEDS ORDERED: FENTANYL CITRATE INJ 50 MCG/1 ML 2 ML VIAL IV PRN (10:15)
[2017-05-19] MEDS ORDERED: EpHEDrine SULFATE INJ 50 MG/ML AMP IV PRN (10:15)
[2017-05-19] MEDS ORDERED: ONDANSETRON INJ 2 MG/ML 2 ML VIAL IV PRN (10:15)
--- NOTE | 2017-05-19 10:16 | Endo History and Physical ---
History & Physical Date of Service: May 19, 2017. Chief Complaint: Referring Physician: History of Present Illness Jarred Comer is a 51 year old male seen today for hx of pancreatitis. He had been to [facility] 3 times within last month (admitted 03/13 to 03/18 ; ED viist on 03/24; admitted 04/04 to 04/06) for pancreatitis. First episode in February started when he was having breakfast in [place], started to have abdominal pain across upper quadrants associated w nausea, dry heaving. He cannot vomit due to s/p Jose Fundoplication. He was diagnosed in the past w IBS and has underlying loose stools but at that time started to have increased diarrhea. He drove home from [place], reported [address] home to [place]. Then went to [facility]. Labs showed Lipase up to 1500, CT scan generally unremarkable, including normal pancreas, no signs of biliary ductal dilation. He is s/p cholecystectomy. He was discharged but went back to [facility] ED on 03/24 w similar abd pain complaints, Lipase 1600. Was not admitted at that time. Then went back again on 04/04 to admitted to 04/06 for pancreatitis. At that time Lipase up to 800s, also noted mild LFT elevation: AST 55, ALT 102, AP 181, Tbili normal. Upon DC LFT improving, Lipase down to 300s. He had CT scan on each visit again not showing signs of pancreatitis, biliary dilation. Pt is a diabetic. Last A1C noted on [facility] admission was 10. He had TG level checked there which was 198. He has a pacemaker in place for Afib thus MRCP cannot be done. Strong family hx of MIs. Denies family hx of pancreatitis or autoimmune diseases. He quit tobacco use in 1987, denies ETOH uses. Denies illicit drugs. At the present, he is still having pain across upper quadrants w some nausea when eating. He eats mostly bland foods, avoiding red meats. He still gets loose stools but said BM habits back to baseline, not having diarrhea like before. No blood or mucus in stool. Adm last week again for smoldering pain, no alarm symptoms. CT Normal last week. Past Surgical History Hx Cardiac Surgery: Yes ( PACER) Hx Abdominal Surgery: No Hx Post-Op Nausea and Vomiting: No Hx Cancer Surgery: No Hx Thoracic Surgery: No Hx Orthopedic: No Hx Urinary Tract Surgery: No Social History Smoking Status: Former Smoker Hx Substance Use: No Hx Alcohol Use: No Allergies Coded Allergies: Atenolol (Unverified Allergy, Unknown, water retention, 05/19/17) Diltiazem (Unverified Allergy, Unknown, migraine, 05/19/17) Indomethacin (Unverified Allergy, Unknown, migraine, 05/19/17) Morphine (Unverified Allergy, Unknown, migraine, 05/19/17) Sulfamethoxazole w/Trimethoprim (Unverified Allergy, Unknown, hives, cramping, 05/19/17) Current Medications Reported Home Medications Medications Dose Route/Sig Max Daily Dose Days Date Category Dose Instructions Metformin HCl 500 Mg Tab 1,000 Mg PO BID 30 05/12/17 Rx Magnesium-Oxide (Magnesium Oxide) 400 Mg Tab 1 Tab PO BID 15 05/12/17 Rx Metronidazole 500 Mg Tab 500 Mg PO TID 8 05/12/17 Rx Glipizide Er (Glipizide) 5 Mg Tab 1 Tab PO DAILY 30 05/12/17 Rx Eq Restore Tears (Carboxymethylcellulose Sodium) 0.5 % Benigno 1 Drop OPB QID PRN 05/08/17 Reported Excedrin Migraine (Bkosfan-Nkzppgukpvqqd-Mqavddlk) 1 Tab Tab 2 Tabs PO Q6 PRN 05/08/17 Reported Not to exceed 3 grams/ 24 hours of all acetaminophen products combined. Coumadin (Warfarin Sod) 5 Mg Tab 10 Mg PO UD 05/08/17 Reported Take 10 mg PO on Monday, Monday, , Monday Aricept (Donepezil Hydrochloride) 10 Mg Tab 10 Mg PO HS 05/08/17 Reported Effexor Extended Rel (Venlafaxine Hcl) 150 Mg Cap 150 Mg PO DAILY 05/08/17 Reported Buspirone Hcl 10 Mg Tab 10 Mg PO BID 05/08/17 Reported Lipitor (Atorvastatin Calcium) 80 Mg Tab 80 Mg PO QPM 05/08/17 Reported Zebeta (Bisoprolol Fumarate) 5 Mg Tab 20 Mg PO DAILY 05/08/17 Reported 10MG TABLETS. TAKE 2 TABLETS ONCE DAILY Coumadin (Warfarin Sod) 6 Mg Tab 7 Mg PO UD 05/08/17 Reported Take 7 mg by mouth on Monday, Monday, Monday Zofran (Ondansetron HCl) 4 Mg Tab 4 Mg PO Q8 PRN 05/08/17 Reported Trileptal (Oxcarbazepine) 300 Mg Tab 450 Mg PO BID 05/01/17 Reported Namenda (Memantine) 10 Mg Tab 10 Mg PO BID 05/01/17 Reported Flomax (Tamsulosin Hcl) 0.4 Mg Cap 0.4 Mg PO DAILY 02/09/15 Reported Lyrica (Pregabalin) 50 Mg Cap 150 Mg PO TID 06/26/14 Reported Lisinopril 10 Mg Tab 1 Tab PO DAILY 12/06/13 Reported Levothyroxine Sodium 150 Mcg Tab 1 Tab PO QAM 12/06/13 Reported Percocet 10MG/325MG (Oxycodone/Acetaminophen) Tab 1 Tab PO Q6 PRN 12/06/13 Reported Vital Signs Weight (Kilograms): 100.4 Height (Feet): 5 Height (Inches): 4 Physical Exam General Appearance: WD/WN, no apparent distress Respiratory/Chest: Respiratory effort: no dyspnea Auscultation: breath sounds normal, CTA except as noted Cardiovascular: Apical Impulse: not displaced Heart Auscultation: RRR, normal S1, normal S2 Abdomen: Bowel Sounds: normal Inspection & Palpation: soft, non-distended Assessment and Plan 52 yo with recurrent pancreatitis for EUS
[2017-05-19] MEDS ORDERED: LIDOCAINE HCL 2% 2 ML VIAL (20MG/ML) ONE (11:06)
[2017-05-19] MEDS ORDERED: DEXAMETHASONE SOD INJ 4 MG/ML VIAL ONE (11:06)
[2017-05-19] MEDS ORDERED: SUCCINYLCHOLINE CHLORIDE 20 MG/ML 10 ML VIAL IV ONE (11:06)
[2017-05-19] MEDS ORDERED: PROPOFOL IV EMULSION 10 MG/ML 20 ML VIAL IV ONE (11:06)
[2017-05-19] MEDS ORDERED: ONDANSETRON INJ 2 MG/ML 2 ML VIAL ONE (11:06)
[2017-05-19] MEDS ORDERED: ROCURONIUM BROMIDE 10 MG/ML 5 ML VIAL ONE (11:06)
--- NOTE | 2017-05-19 11:49 | GI REPORT ---
Procedure Date: 05/19/2017 10:39 AM Procedure: Upper GI endoscopy Indications: Pancreatitis Medicines: General Anesthesia Complications: No immediate complications. Estimated blood loss: None. Estimated Blood Loss: Estimated blood loss: none. Procedure: Pre-Anesthesia Assessment: - Pre-Anesthesia Assessment: - Prior to the procedure, a History and Physical was performed, and patient medications, allergies and sensitivities were reviewed. The patient's tolerance of previous anesthesia was reviewed. Please see [employer] for complete details. - The risks and benefits of the procedure and the sedation options and risks were discussed with the patient. All questions were answered and informed consent was obtained. - Patient identification and proposed procedure were verified prior to the procedure by the physician and the nurse. The procedure was verified in the pre-procedure area in the procedure room. After obtaining informed consent, the endoscope was passed carefully and meticuously under direct vision and only advanced when the lumen was clearly identified, C02 insuflation was utilized throughout the entirity of the procedure. Throughout the procedure, the patient's blood pressure, pulse, and oxygen saturations were monitored continuously. After obtaining informed consent, the endoscope was passed under direct vision. Throughout the procedure, the patient's blood pressure, pulse, and oxygen saturations were monitored continuously. The upper GI endoscopy was accomplished without difficulty. The patient tolerated the procedure well. The scope was introduced through the mouth, and advanced to the second part of duodenum. Findings: The examined esophagus was normal -limited view with the side viewer The entire examined stomach was normal -limited view with the side viewer 2 moderately large diverticulum deformities were found in the area of the papilla, otherwise the duodenum were normal. Impression: - Normal esophagus. - Normal stomach. - Duodenal deformity. - No specimens collected. Recommendation: - Discharge patient to home (with escort). - Perform an upper endoscopic ultrasound (UEUS) today. Heriberto Olson MD 05/19/2017 11:49:27 AM This report has been signed electronically. Note Initiated On: 05/19/2017 10:39 AM I attest to the content of the Intraoperative Record and orders documented therein, exceptions below
--- NOTE | 2017-05-19 11:58 | Discharge Instructions ---
Endoscopy Patient Instructions Date / Procedure(s) Performed May 19, 2017. EGD, Other (EUS) Allergy Information Coded Allergies: Atenolol (Unverified Allergy, Unknown, water retention, 05/19/17) Diltiazem (Unverified Allergy, Unknown, migraine, 05/19/17) Indomethacin (Unverified Allergy, Unknown, migraine, 05/19/17) Morphine (Unverified Allergy, Unknown, migraine, 05/19/17) Sulfamethoxazole w/Trimethoprim (Unverified Allergy, Unknown, hives, cramping, 05/19/17) Discharge Date / Findings May 19, 2017. Normal examinations Provider Instructions Activity Restrictions - No exercising or heavy lifting for 24 hours. - Do not drink alcohol the day of the procedure. - Do not drive a car or operate machinery until the day after the procedure. - Do not make any important decisions or sign important papers in 24 hours after the procedure. Following Day: - Return to full activity which may include returning to work/school. Diet Start your diet with liquids and light foods (jello, soup, juice, toast). Then eat your usual diet if not nauseated. Treatment For Common After Affects For mild abdominal pain, bloating, or excessive gas: - Rest - Eat lightly - Lie on right side Follow-Up Information Follow-up with as scheduled Anesthesia Information What You Should Know You have had a procedure that required some medicine to reduce anxiety and discomfort. This treatment is called moderate sedation. After receiving the treatment, you may be sleepy, but you will be able to breathe on your own. The effects of the treatment may last for several hours. Follow these instructions along with Activity/Diet recommendations noted above: * Do NOT do anything where dizziness or clumsiness would be dangerous. * Rest quietly at home today, then you can be up and about tomorrow. * Have a responsible person stay with you the rest of today. * You may have had an I.V. today. If so, you may take the dressing off later today. Recommendations Call your doctor if: * Trouble breathing * Continuous vomiting for more than 24 hours * Temperature above 101 degrees * Severe abdominal pain or bloating * Pain not relieved by pain medicine ordered * There is increased drainage or redness from any incision * A large amount of rectal bleeding greater than 2-3 tablespoons. (If you had a polyp/s removed or have hemorrhoids, a small amount of blood - from the rectum is to be expected.) * You have any unanswered questions or concerns. IN THE EVENT OF A SERIOUS EMERGENCY, GO TO THE NEAREST EMERGENCY ROOM Your discharge instructions were prepared by provider Heriberto Olson. Patient Instructions Signature Page Jarred Comer Patient (or Guardian) Signature/Date: I have read and understand the instructions given to me by my caregivers. Caregiver/RN/Doctor Signature/Date: The above-named patient and/or guardian has received patient instructions on this date. + Original Patient Signature Page (only) stays with chart. Please make copy for patient.
--- NOTE | 2017-05-19 12:00 | Anesthesiology Progress Note ---
Anesthesia Post Op Note Date & Time May 19, 2017 at 12:00 Vital Signs Pain Intensity: 0 Vital Signs Past 12 Hours Date Time Temp Pulse Resp B/P (MAP) Pulse Ox O2 Delivery O2 Flow Rate FiO2 05/19/17 11:50 60 16 139/86 95 Oxymask 5 05/19/17 11:40 60 16 138/91 97 Oxymask 10 05/19/17 11:30 60 16 143/88 94 Oxymask 10 05/19/17 11:24 36.0 60 16 163/85 95 Oxymask 10 05/19/17 09:29 36.8 60 18 172/95 (120) 93 Room Air Notes Mental Status: alert / awake / arousable, participated in evaluation Pt Amnestic to Procedure: Yes Nausea / Vomiting: adequately controlled Pain: adequately controlled Airway Patency, RR, SpO2: stable & adequate BP & HR: stable & adequate Hydration State: stable & adequate Anesthetic Complications: no major complications apparent
[2017-05-19 12:10] VITALS: BP 125/80; PULSE 60; TEMP 36.9; O2SAT 97
[2017-05-19 12:40] VITALS: BP 148/88; PULSE 60; O2SAT 100
[2017-05-19 13:10] VITALS: BP 132/80; PULSE 60; TEMP 36.5; O2SAT 94
== END 2017-05-19 13:20 | disposition home or self-care (01) ==
LOC: C.ACU 08:41
PROVIDERS: ATTEND Internal Medicine
DX: K57.10 Diverticulosis of small intestine without perforation or abscess without bleeding (principal); I48.91 Unspecified atrial fibrillation; E11.9 Type 2 diabetes mellitus without complications; Z87.891 Personal history of nicotine dependence; Z95.0 Presence of cardiac pacemaker; Z79.01 Long term (current) use of anticoagulants; Z79.84 Long term (current) use of oral hypoglycemic drugs; Z79.899 Other long term (current) drug therapy

== ENCOUNTER 2017-05-25 19:54 | Emergency (ER) | payer OTHER ==
[~2017-05-25] VITALS: Ht 162.6 cm; Wt 101.0 kg
[~2017-05-25 19:54] MED LIST changes: +GLC/500 PO; -GLC500 PO; -LACTATED RINGER'S 1000ML 1,000 ML IV SCH; +MAGN400T6 PO; +METR-163 PO; -MGNO400 PO; -MTR500 PO; -SODIUM CHLORIDE 0.9% 500ML 500 ML IV ONE
[2017-05-25 19:57] VITALS: TEMP 36.7; Ht 162.6 cm; Wt 101.0 kg
[2017-05-25] MEDS ORDERED: ONDANSETRON INJ 2 MG/ML 2 ML VIAL IV STA (20:41)
[2017-05-25] MEDS ORDERED: SODIUM CHLORIDE 0.9% 1000ML 1,000 ML IV STA ×2 (20:41→22:17)
[2017-05-25] MEDS ORDERED: FENTANYL CITRATE INJ 50 MCG/1 ML 2 ML VIAL IV PRN (20:45)
--- NOTE | 2017-05-25 21:06 | EMERGENCY ROOM VISIT NOTE ---
History Report prepared by Kenia: Linda Chicas Under the Supervision of: Dr. Wilfred Keene D.O. First contact with patient: 20:07 Chief Complaint: ABDOMINAL PAIN Stated Complaint: PANCREATITIS Nursing Triage Summary: Pt states he developed abdominal pain almost 2 hrs ago, "it feels just like I have panreatitis again". Pt recently admitted for pancreatitis. Also treated for C-Diff at that time. History of Present Illness The patient is a 52 year old male who presents to the Emergency Room with complaints of constant abdominal pain beginning 2 hours ago. The patient states that he has a history of pancreatitis and was seen here 2 weeks ago for similar symptoms. He reports that he ate dinner tonight and developed the same pain that he had with his pancreatitis shortly after. He notes that he has not taken anything for pain at home but is prescribed Lyrica and Percocet for pain. The patient complains of nausea. He denies any vomiting and rectal bleeding. He notes a history of carpal tunnel, pacemaker, benign tumor removal in the breast and lung and a cholecystectomy. He reports that he is on Coumadin for his atrial fibrillation. The patient states that this is his 5th visit to the ED for this pain. Source of History: patient Onset: 2 hours ago Position: abdomen Timing: constant Associated Symptoms: + nausea, No vomiting Note: Pt denies rectal bleeding. Review of Systems See HPI for pertinent positives & negatives. A total of 10 systems reviewed and were otherwise negative. Past Medical & Surgical Medical Problems: (1) Acute pancreatitis (2) Atrial fibrillation (3) BPH (benign prostatic hyperplasia) (4) Carpal tunnel syndrome (5) Chronic anticoagulation (6) Depression (7) Diabetes (8) DM type 2 (diabetes mellitus, type 2) (9) Dyslipidemia (10) GERD (gastroesophageal reflux disease) (11) HTN (hypertension) (12) Hypertension (13) IBS (irritable bowel syndrome) (14) Kidney stone (15) Migraine (16) Migraines (17) Neuropathy in diabetes (18) Pacemaker (19) Pancreatitis (20) Tarsal tunnel syndrome Surgical Problems: (1) H/O hernia repair (2) H/O hernia repair (3) History of cholecystectomy (4) History of fundoplication (5) S/p kidney stone removal (6) S/P laparoscopic cholecystectomy (7) S/P rotator cuff repair (8) S/p tumor removal right breast (9) S/p tumor removal right lung Family History Cancer Diabetes mellitus Gallbladder disease Heart disease Hypertension Kidney disease Kidney stones Lung disease Social History Smoking Status: Never Smoker Marital Status: Occupation Status: employed Current/Historical Medications Scheduled Atorvastatin (Lipitor), 80 MG PO QPM Bisoprolol Fumarate (Zebeta), 20 MG PO DAILY Buspirone Hcl (Buspirone Hcl), 10 MG PO BID Donepezil Hydrochloride (Aricept), 10 MG PO HS Glipizide (Glipizide Er), 1 TAB PO DAILY Levothyroxine Sodium (Levothyroxine Sodium), 1 TAB PO QAM Lisinopril (Lisinopril), 1 TAB PO DAILY Magnesium Oxide (Mag-Ox), 400 MG PO BID Memantine (Namenda), 10 MG PO BID Metformin Hcl (Glucophage), 500 MG PO BID Oxcarbazepine (Trileptal), 450 MG PO BID Pregabalin (Lyrica), 150 MG PO TID Tamsulosin Hcl (Flomax), 0.4 MG PO DAILY Venlafaxine Hcl (Effexor Extended Rel), 150 MG PO DAILY Warfarin Sod (Coumadin), 7 MG PO UD Warfarin Sod (Coumadin), 10 MG PO UD Scheduled PRN Uhlxhzy-Ogwmlkdvuxsaa-Szkkovyy (Excedrin Migraine), 2 TABS PO Q6 PRN for Migraine Carboxymethylcellulose Sodium (Eq Restore Tears), 1 DROP OPB QID PRN for dry eyes Ondansetron Hcl (Zofran), 4 MG PO Q8 PRN for Nausea Oxycodone/Acetaminophen 10MG/325MG (Percocet 10MG/325MG), 1 TAB PO Q6 PRN for Pain Allergies Coded Allergies: Atenolol (Unverified Allergy, Unknown, water retention, 05/25/17) Cyclosporine (Unverified Allergy, Unknown, BURNINIG, 05/25/17) Diltiazem (Unverified Allergy, Unknown, migraine, 05/25/17) Indomethacin (Unverified Allergy, Unknown, migraine, 05/25/17) Morphine (Unverified Allergy, Unknown, migraine, 05/25/17) Sulfamethoxazole w/Trimethoprim (Unverified Allergy, Unknown, hives, cramping, 05/25/17) Physical Exam Vital Signs Date Time Temp Pulse Resp B/P (MAP) Pulse Ox O2 Delivery O2 Flow Rate FiO2 05/25/17 23:35 60 18 135/81 94 05/25/17 22:56 60 18 135/81 94 Room Air 05/25/17 22:08 60 18 121/65 92 Room Air 05/25/17 21:46 63 05/25/17 19:57 36.7 67 18 137/79 96 Room Air Physical Exam GENERAL: Patient is awake, alert, and in no acute distress. Patient is resting comfortably and showing no signs of anxiety EYES: The conjunctivae are clear. The pupils are round and reactive. EARS, NOSE, MOUTH AND THROAT: The nose is without any evidence of any deformity. Mucous membranes are moist tongue is midline NECK: The neck is nontender and supple. RESPIRATORY: Normal respiratory effort is noted there is no evidence of wheezing rhonchi or rales CARDIOVASCULAR: Regular rate and rhythm noted there no murmurs rubs or gallops normal S1 normal S2 GASTROINTESTINAL: The abdomen mildly distended but soft. Bowel sounds are present in all quadrants. Abdomen is nontender. No specific guarding or rigidity noted. MUSCULOSKELETAL/EXTREMITIES: There is no evidence of gross deformity full range of motion is noted in the hips and shoulders SKIN: There is no obvious evidence of any rash. There are no petechiae, pallor or cyanosis noted. NEUROLOGIC: Patient is awake alert and oriented x3 Medical Decision & Procedures ER Provider Diagnostic Interpretation: X-ray results as stated below per interpretation by me and the radiologist. ABDOMEN 2VIEW W/PA CHEST RTN Leads. There is no free intraperitoneal air. There is no focal pulmonary consolidation. Erect and supine views the abdomen reveal surgical clips within the right upper quadrant likely secondary to a prior cholecystectomy. There are also left upper quadrant surgical clips. There is evidence for lower abdominal hernia mesh. There are bilateral renal calculi. There are no abnormally dilated loops of large or small bowel. There are no transition zones indicate bowel obstruction. IMPRESSION: 1. No evidence of bowel obstruction. No evidence of free air 2. Bilateral nephrolithiasis Electronically signed by: Frank Ruano M.D. 05/25/2017 9:54 PM Dictated Date/Time: 05/25/2017 9:52 PM Laboratory Results 05/25/17 20:55 Red Blood Count 4.66, Mean Corpuscular Volume 84.3, Mean Corpuscular Hemoglobin 29.2, Mean Corpuscular Hemoglobin Concent 34.6, Mean Platelet Volume 10.6, Neutrophils (%) (Auto) 51.4, Lymphocytes (%) (Auto) 35.8, Monocytes (%) (Auto) 9.8, Eosinophils (%) (Auto) 2.6, Basophils (%) (Auto) 0.2, Neutrophils # (Auto) 2.98, Lymphocytes # (Auto) 2.07, Monocytes # (Auto) 0.57, Eosinophils # (Auto) 0.15, Basophils # (Auto) 0.01 05/25/17 20:55 Test 05/25/17 20:55 05/25/17 21:00 White Blood Count 5.79 K/uL (4.8-10.8) Red Blood Count 4.66 M/uL (4.7-6.1) Hemoglobin 13.6 g/dL (14.0-18.0) Hematocrit 39.3 % (42-52) Mean Corpuscular Volume 84.3 fL (80-100) Mean Corpuscular Hemoglobin 29.2 pg (25-34) Mean Corpuscular Hemoglobin Concent 34.6 g/dl (32-36) Platelet Count 242 K/uL (130-400) Mean Platelet Volume 10.6 fL (7.4-10.4) Neutrophils (%) (Auto) 51.4 % Lymphocytes (%) (Auto) 35.8 % Monocytes (%) (Auto) 9.8 % Eosinophils (%) (Auto) 2.6 % Basophils (%) (Auto) 0.2 % Neutrophils # (Auto) 2.98 K/uL (1.4-6.5) Lymphocytes # (Auto) 2.07 K/uL (1.2-3.4) Monocytes # (Auto) 0.57 K/uL (0.11-0.59) Eosinophils # (Auto) 0.15 K/uL (0-0.5) Basophils # (Auto) 0.01 K/uL (0-0.2) RDW Standard Deviation 40.3 fL (36.4-46.3) RDW Coefficient of Variation 13.2 % (11.5-14.5) Immature Granulocyte % (Auto) 0.2 % Immature Granulocyte # (Auto) 0.01 K/uL (0.00-0.02) Prothrombin Time 20.4 SECONDS (9.0-12.0) Prothromb Time International Ratio 1.9 (0.9-1.1) Anion Gap 8.0 mmol/L (3-11) Est Creatinine Clear Calc Drug Dose 53.4 ml/min Estimated GFR () 51.8 Estimated GFR (Non- 44.7 BUN/Creatinine Ratio 14.3 (10-20) Calcium Level 8.8 mg/dl (8.5-10.1) Total Bilirubin 0.3 mg/dl (0.2-1) Direct Bilirubin 0.1 mg/dl (0-0.2) Aspartate Amino Transf (AST/SGOT) 39 U/L (15-37) Alanine Aminotransferase (ALT/SGPT) 70 U/L (12-78) Alkaline Phosphatase 134 U/L (45-117) Total Protein 6.7 gm/dl (6.4-8.2) Albumin 3.8 gm/dl (3.4-5.0) Lipase 473 U/L (73-393) Beta-Hydroxybutyric Acid 1.37 mg/dL (0.2-2.81) Urine Color YELLOW Urine Appearance CLEAR (CLEAR) Urine pH 6.0 (4.5-7.5) Urine Specific [place] 1.026 (1.000-1.030) Urine Protein NEG (NEG) Urine Glucose (UA) 3+ (NEG) Urine Ketones TRACE (NEG) Urine Occult Blood NEG (NEG) Urine Nitrite NEG (NEG) Urine Bilirubin NEG (NEG) Urine Urobilinogen NEG (NEG) Urine Leukocyte Esterase NEG (NEG) Laboratory results per my review. Medications Administered Medications (Trade) Dose Ordered Sig/Stephanie Route Start Time Stop Time Status Last Admin Dose Admin Sodium Chloride 1,000 ml @ 999 mls/hr Q1H1M STAT IV 05/25/17 20:41 05/25/17 21:41 DC 05/25/17 20:41 999 MLS/HR Ondansetron HCl (Zofran Inj) 4 mg NOW STAT IV 05/25/17 20:41 05/25/17 20:42 DC 05/25/17 20:54 4 MG Fentanyl Citrate (Fentanyl Inj) 75 mcg Q20M PRN IV 05/25/17 20:45 05/26/17 00:23 DC 05/25/17 20:55 75 MCG Sodium Chloride 1,000 ml @ 999 mls/hr Q1H1M STAT IV 05/25/17 22:17 05/25/17 23:17 DC 05/25/17 22:23 999 MLS/HR Hydromorphone HCl (Dilaudid Inj) 1 mg NOW STAT IV 05/25/17 22:39 05/25/17 22:40 DC 05/25/17 22:55 1 MG ED Course 2006: The patient was evaluated in room C1. A complete history and physical examination were performed. 2040: Zofran Inj 4mg IV, NSS 1,000 ml @ 999 mls/hr IV. 2044: Fentanyl Inj 75mcg PRN IV pain. 2116: I reevaluated and updated the patient. 2216: Sodium Chloride 1000ml @ 999mls/hr IV. 2240: I reevaluated and updated the patient. 2238: Dilaudid Inj 1mg IV. 225: Upon reevaluation, the patient is doing well. I discussed the results and treatment plan with the patient. He verbalized agreement of the treatment plan. The patient was discharged home. Medical Decision Differential diagnosis: Etiologies such as appendicitis, diverticulitis, PUD, biliary pathology, UTI, pancreatitis, obstruction, mesenteric ischemia, aortic pathology, infections, inflammatory bowel disease, renal colic, as well as others were entertained. Medication Reconciliation: I attest that I have personally reviewed the patient' s current medications list. Blood pressure screening: Patient was found to have normal blood pressure on screening and does not require follow-up. The patient is a 52-year-old male who presented to emergency department for an evaluation of abdominal pain. The patient has a history of chronic pancreatitis. The patient was treated with IV fluids IV pain medicine and IV antiemetics. I discussed the patient's laboratory and radiographic studies with him. I reviewed the patient's previous electronic medical records. He was encouraged to rest and avoid any strenuous activity. He was also encouraged to continue all medications as prescribed and follow-up with his family doctor this week for reevaluation. Otherwise she was encouraged to return to the emergency department immediately if symptoms change worsen or the need arises. Impression Primary Impression: Pancreatitis Additional Impressions: Epigastric abdominal pain Dehydration Acute kidney injury Scribe Attestation The scribe's documentation has been prepared under my direction and personally reviewed by me in its entirety. I confirm that the note above accurately reflects all work, treatment, procedures, and medical decision making performed by me. Departure Information Dispostion Home / Self-Care Referrals Alejandro Becerra D.O. (PCP) Forms Call Back Authorization, HOME CARE DOCUMENTATION FORM, IMPORTANT VISIT INFORMATION Patient Instructions Dehydration, [facility], Pancreatitis Additional Instructions Call your family in the morning to schedule a follow-up appointment. Drink plenty clear liquids. Continue all medications as prescribed. I would recommend having her laboratory studies recheck with your family doctor. Problem Qualifiers Primary Impression: Pancreatitis Chronicity: chronic Pancreatitis type: unspecified pancreatitis type Qualified Codes: K86.1 - Other chronic pancreatitis
[2017-05-25 21:07] LABS: BASO % 0.2 %; BASO ABS # 0.01 K/uL (0-0.2); COMPLETE YES; EOS % 2.6 %; HEMATOCRIT 39.3 % (42-52); IG% 0.2 %; LYMPH % 35.8 %; LYMPH ABS # 2.07 K/uL (1.2-3.4); MEAN CELL VOLUME 84.3 fL (80-100); MEAN CORPUSCULAR HEMOGLOBIN 29.2 pg (25-34); MEAN CORPUSCULAR HGB CONC 34.6 g/dl (32-36); MEAN PLATELET VOLUME 10.6 fL (7.4-10.4); MONO % 9.8 %; NEUT % 51.4 %; PLATELET COUNT 242 K/uL (130-400); RED BLOOD COUNT 4.66 M/uL (4.7-6.1); WHITE BLOOD COUNT 5.79 K/uL (4.8-10.8)
[2017-05-25 21:16] LABS: INR 1.9 (0.9-1.1); PROTHROMBIN TIME (PATIENT) 20.4 SECONDS (9.0-12.0)
[2017-05-25 21:54] LABS: URINE APPEARANCE CLEAR (CLEAR); URINE BILIRUBIN NEG (NEG); URINE COLOR YELLOW; URINE NITRITE NEG (NEG); URINE SPECIFIC GRAVITY 1.026 (1.000-1.030); UROBILINOGEN NEG (NEG)
--- NOTE | 2017-05-25 21:56 | DIAGNOSTIC IMAGING REPORT ---
ABDOMEN 2VIEW W/PA CHEST RTN CLINICAL HISTORY: Abdominal pain COMPARISON STUDY: CT scan dated 05/10/2017 FINDINGS: The heart is normal in size. There is a left subclavian dual-chamber central venous pacemaker. There is an unused extra Leads. There is no free intraperitoneal air. There is no focal pulmonary consolidation. Erect and supine views the abdomen reveal surgical clips within the right upper quadrant likely secondary to a prior cholecystectomy. There are also left upper quadrant surgical clips. There is evidence for lower abdominal hernia mesh. There are bilateral renal calculi. There are no abnormally dilated loops of large or small bowel. There are no transition zones indicate bowel obstruction. IMPRESSION: 1. No evidence of bowel obstruction. No evidence of free air 2. Bilateral nephrolithiasis Electronically signed by: Frank Ruano M.D. 05/25/2017 9:54 PM Dictated Date/Time: 05/25/2017 9:52 PM
[2017-05-25 21:58] LABS: MANUAL MICROSCOPIC REQUIRED? NO; REVIEW REQ? NO
[2017-05-25 22:03] LABS: BUN/CREATININE RATIO 14.3 (10-20); CALCIUM 8.8 mg/dl (8.5-10.1); CREATININE 1.7 mg/dl (0.60-1.40)
[2017-05-25 22:20] LABS: POTASSIUM 4.5 mmol/L (3.5-5.1)
[2017-05-25 22:27] LABS: BETA-HYDROXYBUTYRATE 1.37 mg/dL (0.2-2.81)
[2017-05-25] MEDS ORDERED: HYDROmorphone INJ 1 MG/ML SYR IV STA (22:39)
[2017-05-25 23:35] VITALS: BP 135/81; PULSE 60; O2SAT 94
== END 2017-05-25 23:35 | disposition home or self-care (01) ==
LOC: C.EDB 19:56 → C.EDC 23:35
DX: K86.1 Other chronic pancreatitis (principal); N17.9 Acute kidney failure, unspecified; E86.0 Dehydration; R10.13 Epigastric pain; N20.0 Calculus of kidney; I48.91 Unspecified atrial fibrillation; E11.9 Type 2 diabetes mellitus without complications; E78.5 Hyperlipidemia, unspecified; K58.9 Irritable bowel syndrome, unspecified; K21.9 Gastro-esophageal reflux disease without esophagitis; F32.9 Major depressive disorder, single episode, unspecified; Z90.49 Acquired absence of other specified parts of digestive tract; Z95.0 Presence of cardiac pacemaker; Z79.01 Long term (current) use of anticoagulants; Z79.84 Long term (current) use of oral hypoglycemic drugs; Z79.899 Other long term (current) drug therapy; Z88.2 Allergy status to sulfonamides; Z88.5 Allergy status to narcotic agent; Z88.8 Allergy status to other drugs, medicaments and biological substances; Z80.9 Family history of malignant neoplasm, unspecified; Z83.3 Family history of diabetes mellitus; Z83.79 Family history of other diseases of the digestive system; Z82.49 Family history of ischemic heart disease and other diseases of the circulatory system; Z84.1 Family history of disorders of kidney and ureter